=== PATIENT | male | born 1950 | race Caucasian/White ===

== ENCOUNTER → 2018-02-24 06:18 | Outpatient (CLI) | payer MEDICARE, OTHER, SELFPAY ==
--- NOTE | 2018-02-24 08:49 | STRESSREP ---
Stress Test Report Exercise myocardial perfusion stress test. 67-year-old man with a history of chest pain. Stress protocol: Resting EKG demonstrates normal sinus rhythm with a rate of 82 bpm normal intervals and noted resting blood pressure is 138/84 mmHg. The patient exercised according to regular Mikey protocol for 7 minutes and 37 seconds. The maximum heart rate attained was 137 bpm which was 89% of maximum predicted heart rate the maximum workload was 9.4 metabolic equivalents. At rest there were no ST or T-wave changes noted suggest ischemia at peak exercise upsloping ST changes only were noted would not be the criteria for ischemia. No clinical angina was noted the test was terminated due to shortness of breath. The resting blood pressure is 138/84 with a peak blood pressure 170/80 mmHg. Myocardial perfusion protocol. 10.8 mCi of technetium 99m sestamibi was injected at rest. The patient exercised for 7 minutes 37 seconds attaining 89% of maximum predicted heart rate at peak exercise 32.9 mCi of technetium 99m sestamibi was injected stress images were obtained stress and rest images were reconstructed and compared in the short axis vertical long and horizontal long axis. Gated images were also obtained pre- Perfusion SPECT analysis: Review of the stress images demonstrate normal uptake of tracer noted in all areas of the myocardium. The resting images similarly demonstrate normal uptake of tracer noted in all areas myocardium no areas of reversibility are noted suggest ischemia. No previous infarct is noted. Gated SPECT analysis: The gated ejection fraction is noted to be 75%. Conclusion: Normal exercise myocardial perfusion stress test at a high workload. Normal ejection fraction noted. Normal exercise capacity present.
== END ==
PROVIDERS: Family Provider Internal Medicine; PCP Internal Medicine; Visit Provider Internal Medicine Cardiovascular Disease
DX: R06.09 Other forms of dyspnea (principal); I10 Essential (primary) hypertension
CPT/HCPCS: 78452; 93017; A9500; A4216

== ENCOUNTER 2018-05-29 10:31 | Inpatient (IN) | payer MEDICARE, OTHER, SELFPAY ==
[2018-05-29] VITALS (17 sets, daily range): BP systolic 109–141; BP diastolic 62–90; PULSE 61–76; RESP 13–18; TEMP 36.4–36.9; O2SAT 94–100; BMI 23.8; BMI 24.5
--- NOTE | 2018-05-29 10:36 | CT_ITS ---
STUDY: CT BRAIN WITHOUT CONTRAST REASON FOR EXAM: Male, 67 years old. Diplopia and coordination problems. RADIATION DOSAGE (If Supplied By Facility): CTDIvol = ( 44.99 ) mGy, DLP = ( 779.24 ) mGycm TECHNIQUE: Transaxial CT imaging of the brain was performed without administration of intravenous contrast material. Multiplanar reformations are submitted for interpretation. Individualized dose optimization techniques were used for this CT. COMPARISON: None. FINDINGS: Normal soft tissue structures. Normal calvarium. There is mild cerebral atrophy with widening of the extra-axial spaces and ventricular dilatation. There are areas of decreased attenuation within the white matter tracts of the supratentorial brain, consistent with microvascular disease changes. There are small calcifications of the basal ganglia which are seen in the aging brain as a normal variant. Normal brainstem. Normal cerebellum. There is no intracranial hemorrhage. There is mild atherosclerotic calcification of the intracranial arteries. Normal visualized paranasal sinuses. CT/Brain/Head without Contrast IMPRESSION: 1. Chronic involutional changes of the brain. 2. No CT evidence of acute intracranial hemorrhage. N.B. : The above information has been verbally conveyed by Fariha Dobbs MD to Cornelio Melvin, Referring Physician, on 05/29/2018 11:20:45 (ET). Electronically Signed: Fariha Dobbs MD at 11:23 EDT , Service support ,
--- NOTE | 2018-05-29 10:37 | CT_ITS ---
STUDY: CTA OF THE BRAIN REASON FOR EXAM: Male, 67 years old. Balance and incoordination problems. Patient has had a cerebellar stroke. RADIATION DOSAGE (If Supplied By Facility): CTDIvol = ( 15.35 ) mGy, DLP = ( 462.44 ) mGycm TECHNIQUE: CT angiography was performed with a multi-detector CT scanner. Data acquisition was obtained from the skull base through the vertex following intravenous administration of 100 ml of Isovue 370. MIP images were reconstructed from the axial data set. Post-processing of the angiographic images was performed, with multiplanar reformation and 3D reconstruction. Individualized dose optimization techniques were used for this CT. COMPARISON: None. FINDINGS: Normal bilateral petrous carotid arteries. There is elongation and tortuosity of the right cavernous carotid artery without a demonstrated hemodynamically significant stenosis. There is elongation and tortuosity of the left cavernous carotid artery without a demonstrated hemodynamically significant stenosis. Normal right A1 segments of the anterior cerebral artery. Normal left A1 segments of the anterior cerebral artery. Normal intact anterior communicating artery (ACOM). Normal bilateral A2 segments of the anterior cerebral arteries. Normal right M1 and M2 segments of the middle cerebral arteries, with a normal M1 bifurcation. Normal left M1 and M2 segments of the middle cerebral arteries, with a normal M1 bifurcation. There is a persistent origin of the right posterior cerebral artery with absence of the posterior communicating artery (PCOM). Normal left posterior communicating artery (PCOM). There is a small atretic left vertebral artery with a dominant right vertebral artery. Normal basilar artery with a normal basilar bifurcation. The visualized bilateral superior cerebellar (SCA) arteries are normal. There is absence of the right P1 segment of the posterior cerebral arteries with a normal left P1 segment. Normal visualized bilateral P2 and P3 segments of the posterior cerebral arteries. There is no demonstrated aneurysm of the [place]. There is no demonstrated abnormality of the visualized brain. CT/CTA Head W/WO Contrast IMPRESSION: No CT evidence for hemodynamically significant stenosis, thrombosis or aneurysm. Electronically Signed: Fariha Dobbs MD at 11:37 EDT , Service support ,
--- NOTE | 2018-05-29 10:37 | CT_ITS ---
STUDY: CTA NECK WITH CONTRAST REASON FOR EXAM: Male, 67 years old. Balance and coordination issues, CVA symptoms RADIATION DOSAGE (If Supplied By Facility): CTDIvol = ( ) mGy, DLP = ( ) mGycm TECHNIQUE: CT angiography with multi-detector data acquisition was performed from the aortic arch to the skull base following intravenous administration of 100 ml of Isovue-370 contrast. MIP images were reconstructed from the axial data set. Post-processing of the angiographic images was performed, with multiplanar reformation and 3D reconstruction. Individualized dose optimization techniques were used for this CT. COMPARISON: CT soft tissues of the neck with IV contrast November 09, 2017. FINDINGS: The right lobe of the thyroid gland is notably decreased in size or poorly perfused compared to prior study. Multilevel degenerative changes of the cervical spine are again noted. Soft tissue swelling previously seen anterior to the left sternoclavicular joint has resolved. There is a stable generator in the soft tissues of the right anterior chest wall, its lead extending to the right sublingual tissues. AORTIC ARCH: There is atherosclerotic calcific plaque formation of the aortic arch and great vessels arising from the aortic arch, without a hemodynamically significant stenosis. There is a bovine origin of the great vessels with a common origin of the brachiocephalic and left common carotid artery. Normal origin of the left subclavian artery. There is calcific plaquing without stenosis at the origin of the right subclavian artery. RIGHT CAROTID ARTERIES: Normal right common carotid artery (CCA). There is mild atherosclerotic plaque formation with minimal narrowing of the right carotid bulb. Normal origin of the right internal carotid (ICA) artery without a hemodynamically significant stenosis. Normal visualized cervical portion of the right internal carotid artery. Normal origin of the right external carotid artery (ECA). LEFT CAROTID ARTERIES: Normal left common carotid artery (CCA). There is mild atherosclerotic plaque formation with minimal narrowing of the left carotid bulb. Normal origin of the left internal carotid (ICA) artery without a hemodynamically significant stenosis. Normal visualized cervical portion of the left internal carotid artery. Normal origin of the left external carotid artery (ECA). VERTEBRAL ARTERIES: Mild atherosclerotic narrowing at the ostium of the right vertebral artery. There is a severe ostial stenosis of left vertebral artery, which is a very small, 1-[address]/CTA Neck W/WO Contrast IMPRESSION: 1. Mild bilateral atherosclerotic calcification of the carotid bulbs without stenosis. The internal carotid arteries are widely patent. 2. Severe atherosclerotic stenosis of the small caliber, 1-2 mm left vertebral artery. 3. Moderate diffuse right narrowing at the ostium of the otherwise patent, normal caliber right vertebral artery. 4. Notable decreased size and/or decreased contrast enhancement of right thyroid gland. 5. Right sublingual stimulator with generator again noted. Electronically Signed: Parish Singh MD at 12:04 EDT , Service support ,
[2018-05-29 10:41] LABS: Bedside Glucose 101 mg/dL (70-110)
--- NOTE | 2018-05-29 10:45 | NURSING ---
DR SHEN PAGED
--- NOTE | 2018-05-29 10:47 | ED.VISSUMM ---
- ER Visit Summary Date of Service: 05/29/18 Chief Complaint: Awoke with vertigo History of Present Illness: The patient is a 67 M who presents with problems with balance. He denies headache. He denied any blurred vision loss of vision. His symptoms are not positional. He denies trouble with speech or swallowing. He denies chest pain, tightness, orthopnea or PND. He denies shortness of breath, dyspnea on exertion or cough. He does report nausea without vomiting diarrhea. He denies any urologic symptoms. There is no history of trauma. He is on no anticoagulant. He has no prior history of TIA or CVA. Patient awoke with symptoms. Onset is unknown. Physical Examination: Vital signs are markedly abnormal but not significant. Head is atraumatic normocephalic. Pupils are equal round reactive. Extraocular muscles are intact. There is nystagmus noted, horizontal fast component to the right. TMs are pearly white with landmarks noted. Nares patent with no drainage. Posterior pharynx without erythema or exudate. Uvula is midline. There is no dysphonia or dysphasia. Trachea is midline. There is no stridor with auscultation of the neck. Heart is regular without murmur, gallop or rub. S1 and S2 are normal. Lungs are clear to auscultation with good movement of air bilaterally. Abdomen soft nontender. NIH is 1. He is alert and oriented ?3. Motor spiral 5. Sensations intact. DTRs are symmetric with no clonus or Babinski. Cranial 2 through 12 are intact. Pain nose to finger and heel to awrren is abnormal predominantly on the right. He does report diplopia. There is no visual field cut, however. Test Results: EKG reveals a sinus rhythm rate of 67 with normal [place] interval, QRS duration and QT interval. [place] is normal. CT of the head interpreted by radiologist reveals no acute ischemic event. CTA of the head and neck are pending. Dr. Mitchell requested MRI however patient is not a candidate since he has a implanted stimulator for obstructive sleep apnea. CBC is unremarkable hematocrit is slightly low at 39.2. Creatinine is elevated 1.53. Coags normal. Emergency Department Course and Treatment: Stroke order set was initiated. Spoke with Dr. Mitchell. He requested MRI of CT of the head and CTA of the head and neck were negative. Contacted the vtc technician. She states she would prefer to do MRI today versus tomorrow since she would not be called in. Patient has no contraindication to MRI. If there is an abnormally on the CAT scan or he is a candidate for retrieval will not order MRI and make appropriate disposition. Patient failed dysphagia screening test Treatment Plan: Hospitalist was paged for admission Disposition: PCU Impression: Acute posterior circulatory stroke This note was generated with [employer] dictation software. It may contain incorrect words, spelling, and punctuation that were not noted in review of the chart prior to signing ED Disposition - Plan for ED Patient: Chief Complaint: Neuro S/Sx Referrals: Margy Patel MD [Primary Care Provider] -
[2018-05-29 10:50] LABS: Absolute Lymphocyte Count 1.22 X10^3/ul (0.83-4.51); Absolute Neutrophil Count 4.5 X10^3/uL (2.0-7.7); Basophil# 0.04 X10^3/uL; Basophil% 0.6 % (0-1); Eosinophil# 0.28 X10^3/uL; Eosinophils% 4.2 % (0-5); Hematocrit 39.2 % (40-54); Lymphocyte # 1.22 X10^3/ul (4.0); Lymphocyte % 18.2 % (19-41); Mean Corp Hgb Conc 33.2 g/gl (32-36); Mean Corpuscular Volume 96.6 fL (80-94); Mean Platelet Vol. 8.5 fl (6.2-12.0); Monocyte# 0.68 X10^3/uL; Monocyte% 10.1 % (0-10); Neutrophil # 4.46 X10^3/uL (2.7-7.7); Neutrophil % 66.6 % (47-70); POSITIVE COUNT NO; POSITIVE DIFFERENTIAL NO; POSITIVE MORPHOLOGY NO; Platelet Count 285 K/mm3 (150-450); RBC Distribution Width CV 13.4 % (11.6-14.6); RBC Distribution Width SD 46.6 fl (35.1-43.9); Red Blood Count 4.06 M/mm3 (4.6-6.2); White Blood Count 6.7 K/mm3 (4.4-11.0)
--- NOTE | 2018-05-29 10:53 | ED.DCSUM_ITS ---
- ER Visit Summary Date of Service: 05/29/18 Chief Complaint: Awoke with vertigo History of Present Illness: The patient is a 67 M who presents with problems with balance. He denies headache. He denied any blurred vision loss of vision. His symptoms are not positional. He denies trouble with speech or swallowing. He denies chest pain, tightness, orthopnea or PND. He denies shortness of breath, dyspnea on exertion or cough. He does report nausea without vomiting diarrhea. He denies any urologic symptoms. There is no history of trauma. He is on no anticoagulant. He has no prior history of TIA or CVA. Patient awoke with symptoms. Onset is unknown. Physical Examination: Vital signs are markedly abnormal but not significant. Head is atraumatic normocephalic. Pupils are equal round reactive. Extraocular muscles are intact. There is nystagmus noted, horizontal fast component to the right. TMs are pearly white with landmarks noted. Nares patent with no drainage. Posterior pharynx without erythema or exudate. Uvula is midline. There is no dysphonia or dysphasia. Trachea is midline. There is no stridor with auscultation of the neck. Heart is regular without murmur, gallop or rub. S1 and S2 are normal. Lungs are clear to auscultation with good movement of air bilaterally. Abdomen soft nontender. NIH is 1. He is alert and oriented ?3. Motor spiral 5. Sensations intact. DTRs are symmetric with no clonus or Babinski. Cranial 2 through 12 are intact. Pain nose to finger and heel to [place] is abnormal predominantly on the right. He does report diplopia. There is no visual field cut, however. Test Results: EKG reveals a sinus rhythm rate of 67 with normal [place] interval, QRS duration and QT interval. [place] is normal. CT of the head interpreted by radiologist reveals no acute ischemic event. CTA of the head and neck are pending. Dr. Mitchell requested MRI however patient is not a candidate since he has a implanted stimulator for obstructive sleep apnea. CBC is unremarkable hematocrit is slightly low at 39.2. Creatinine is elevated 1.53. Coags normal. Emergency Department Course and Treatment: Stroke order set was initiated. Spoke with Dr. Mitchell. He requested MRI of CT of the head and CTA of the head and neck were negative. Contacted the bioprocessing manufacturing technician. She states she would prefer to do MRI today versus tomorrow since she would not be called in. Patient has no contraindication to MRI. If there is an abnormally on the CAT scan or he is a candidate for retrieval will not order MRI and make appropriate disposition. Patient failed dysphagia screening test Treatment Plan: Hospitalist was paged for admission Disposition: PCU Impression: Acute posterior circulatory stroke This note was generated with [employer] dictation software. It may contain incorrect words, spelling, and punctuation that were not noted in review of the chart prior to signing ED Disposition - Plan for ED Patient: Chief Complaint: Neuro S/Sx Referrals: Margy Patel MD [Primary Care Provider] -
[2018-05-29 10:57] LABS: Partial Thromboplast Time 29.1 Seconds (24.1-36.2); Prothrombin Time (Protime)PT. 13.1 SECONDS (11.7-14.9)
[2018-05-29 11:02] LABS: Anion Gap 10 (5-15); BUN 16 mg/dL (7-18); BUN/Creat Ratio 10.5 RATIO (10-20); Calcium,Total 8.8 mg/dL (8.5-10.1); Chloride 106 mmol/L (98-107); Creatinine, Serum 1.53 mg/dL (0.70-1.30); EST Glomerular Filtration Rate 48 mL/min (>60); Est Glom Filt Rate - Afr Amer 59 mL/min (>60); Estimated Creatinine Clearance 46.85 ml/min; Glucose 103 mg/dL (74-106); Potassium 4.4 mmol/L (3.5-5.1); Sodium Level 144 mmol/L (136-145)
--- NOTE | 2018-05-29 12:07 | ED.RN ---
PAGED HOSPITALIST FOR SECOND TIME [phone]
--- NOTE | 2018-05-29 12:53 | NURSING ---
DR BROWN FOR DR RODARTE
--- NOTE | 2018-05-29 12:53 | NURSING ---
PCU PROBABLE ACUTE POSTERIOR CIRCULAGTION STROKE SALOME
--- NOTE | 2018-05-29 13:04 | PCM.HP.STD ---
Problem List (1) Hypothyroidism Status: Chronic (2) Severe depression Status: Chronic (3) Obstructive sleep apnea Status: Chronic (4) Hypothyroidism Status: Chronic Qualifiers: (5) Suicide attempt by beta helena overdose Status: Chronic Qualifiers: History of Present Illness Date of Admission: 05/29/18 Chief Complaint: Dizziness. The patient is a 67 year old M with past medical history as mentioned above presented to the emergency department because of problems with balance. The patient mentioned that he woke up this morning with dizziness, could not precisely described as dizziness but sometimes similar to vertigo with spinning, associated with generalized weakness and he could not climb the stairs at home and without aggravating or relieving factors. It is not positional and moving his head does not aggravate his dizziness. He denied blurred vision, slurred speech, numbness or tingling. He denied headache, ear pain or discharge. He denied focal arm or leg weakness. He had a history of severe depression and suicide attempt by overdosing on beta-blockers and he has been on venlafaxine and lamotrigine. He had a history of hypothyroidism and he has been on levothyroxine, TSH was normal on October,. He has a history of benign prostatic hypertrophy and he has been on pressors seen and has been stable. He has history of obstructive sleep apnea status post implanted stimulator. In the emergency department, patient has no focal deficit. His vital signs are stable. His routine blood work was remarkable for creatinine 1.53, otherwise normal. His EKG revealed normal sinus rhythm, normal GA interval, normal QRS, normal QTC and no evidence of cardiac arrhythmias. CT scan brain showed no acute infarction or hemorrhage. CTA of the head revealed no hemodynamically significant stenosis, thrombosis or aneurysm. CTA of the neck revealed mild bilateral arteriosclerotic calcification of the carotid bulbs without stenosis, severe stenosis of the small-caliber vertebral artery. Patient is being admitted for dizziness/vertigo, imbalance with concern for probable posterior circulation stroke. Past Medical History Past Medical History (Chronic Problems): Chronic Problems Hypothyroidism (Chronic) Severe depression (Chronic) Obstructive sleep apnea (Chronic) Hypothyroidism (Chronic) Suicide attempt by beta helena overdose (Chronic) Allergies No Known Allergies Allergy (Verified 05/29/18 10:32) Home Medications: Ambulatory Orders Medication Instructions Recorded Lamotrigine [Lamotrigine] 100 mg PO DAILY 11/08/17 Prazosin HCl [Prazosin HCl] 1 mg PO DAILY 11/08/17 Propranolol HCl [Inderal (Beta 10 mg PO BID 11/08/17 [place])] Simvastatin [Zocor] 20 mg PO DAILY 11/08/17 Venlafaxine HCl [Venlafaxine HCl 150 mg PO DAILY 11/08/17 ER] Levothyroxine [Synthroid] 50 mcg PO DAILY 11/10/17 Venlafaxine HCl [Effexor Xr] 75 mg PO DAILY 05/29/18 Surgical History: - - Implanted stimulator for obstructive sleep apnea. Psychiatric History: Depression Lives: Spouse/ Significant Other Smoking Status: Never smoker Alcohol: None Drugs: None - *Family History Maternal History Items: - - Maternal and paternal family history of hypertension, heart disease, depression. Paternal History Items: - - Maternal and paternal family history of hypertension, heart disease, depression. Review of Systems Constitutional: Reports: Weakness. Denies: Anorexia, Chills, Fever Eyes: Denies: Blurred vision, Double vision, Drainage, Redness HEENT: Denies: Difficulty Hearing, Ear Pain, Eye Pain, Nasal Congestion, Sore Throat Cardiovascular: Denies: Chest Pain, Chest Pressure, Chest Tightness, Heaviness, Light Headedness, Palpitations, Syncope Respiratory: Denies: Cough, Pleuritic Pain, Shortness of Breath, Sputum production, Wheezing Gastrointestinal: Denies: Abdominal Pain, Constipation, Diarrhea, Nausea, Vomiting Genitourinary: Denies: Dysuria, Frequency, Hematuria Musculoskeletal: Denies: Arm Pain, Back Pain, Foot Pain Skin: Denies: Dryness, Rash Neurological: Reports: Balance problems, Double vision. Denies: Slurred speech, Confusion, Focal weakness, Headaches, Numbness, Tingling Psychiatric: Reports: Depression. Denies: Anxiety Endocrine: Denies: Change in Body Habitus, Polydipsia VTE Information - Inpt Only VTE Present on Admission: No VTE Mechan Device Prophylaxis: None VTE Pharm Prophylaxis ordered?: Yes - Physical Exam General: Alert, Oriented x3, Cooperative, No apparent distress HEENT: Atraumatic, PERRLA, EOMI, Normocephalic Oral: Moist Mucosa, No Gingival or Mucosal Lesions/ Ulcerations Neck: Supple, No JVD, Negative Carotid Bruits, Trachea Midline, Thyroid Normal Size and Texture Lungs: Clear to auscultation, No rhonchi, No wheeze, No rales, Diminished Cardiovascular: Regular rate, Regular Rhythm, Normal S1, Normal S2, No murmurs, PMI Normal Abdomen: Bowel Sounds Present, Soft, Non Tender, Non-Distended, No Hepato-splenomegaly Extremities: No clubbing, No cyanosis, No edema Skin: No rashes, No breakdown Lymphatic: No Cervical, Supraclavicular, or Inguinal Adenopathy Neurological: Cranial nerves II-XII grossly intact, Motor Exam 5/5 strength throughout Psych/Mental Status: Anxious, - - Tremors., Alert and oriented to time, place, person, mood and affect Vital Signs Temp Pulse Resp BP Pulse Ox 97.5 F L 61 18 136/75 H 99 05/29/18 10:33 05/29/18 12:45 05/29/18 12:45 05/29/18 12:45 05/29/18 12:45 Oxygen Delivery Method Room Air Weight: 161 lb 13.109 oz Body Mass Index (BMI) 23.8 Finger Stick Blood Glucose 101 Laboratory Tests Past 24 Hrs 05/29/18 05/29/18 05/29/18 10:45 10:45 10:45 WBC 6.7 RBC 4.06 L Hgb 13.0 Hct 39.2 L MCV 96.6 H MCH 32.0 MCHC 33.2 RDW 13.4 RDW Differential 46.6 H Plt Count 285 MPV 8.5 Immature Gran % (Auto) 0.300 Neut % (Auto) 66.6 Lymph % (Auto) 18.2 L [place] % (Auto) 10.1 H Eos % (Auto) 4.2 Baso % (Auto) 0.6 Absolute Neuts (auto) 4.5 Absolute Lymphs (auto) 1.22 Total Counted Not Reportable PT 13.1 INR 1.0 APTT 29.1 Sodium 144 Potassium 4.4 Chloride 106 Carbon Dioxide 28.0 Anion Gap 10 BUN 16 Creatinine 1.53 H Estim Creat Clear Calc 46.85 Est GFR (MDRD) Af Amer 59 L Est GFR (MDRD) Non-Af 48 L BUN/Creatinine Ratio 10.5 Glucose 103 Calcium 8.8 POC Glucose 05/29/18 10:36 POC Glucose 101 Clinical Impression(s) from Imaging Studies Brain CT 05/29/18 10:36 IMPRESSION: 1. Chronic involutional changes of the brain. 2. No CT evidence of acute intracranial hemorrhage. N.B. : The above information has been verbally conveyed by Fariha Dobbs MD to Cornelio Melvin, Referring Physician, on 05/29/2018 11:20:45 (ET). Electronically Signed: Fariha Dobbs MD at 11:23 EDT , Service support , Head CTA 05/29/18 10:37 IMPRESSION: No CT evidence for hemodynamically significant stenosis, thrombosis or aneurysm. Electronically Signed: Fariha Dobbs MD at 11:37 EDT , Service support , Neck CTA 05/29/18 10:37 IMPRESSION: 1. Mild bilateral atherosclerotic calcification of the carotid bulbs without stenosis. The internal carotid arteries are widely patent. 2. Severe atherosclerotic stenosis of the small caliber, 1-2 mm left vertebral artery. 3. Moderate diffuse right narrowing at the ostium of the otherwise patent, normal caliber right vertebral artery. 4. Notable decreased size and/or decreased contrast enhancement of right thyroid gland. 5. Right sublingual stimulator with generator again noted. Electronically Signed: Parish Singh MD at 12:04 EDT , Service support , Assessment/Plan This is a 67 years old male patient presented to the medicine because of symptoms of dizziness, questionable vertigo, imbalance and he is being admitted for evaluation for probable acute posterior circulation stroke and also found to have acute kidney injury. #1 dizziness/probable vertigo/imbalance/concern for posterior circulation stroke: CT scan brain showed no acute infarction or hemorrhage. CTA of the head and neck reviewed as above. CTA of the neck revealed severe atherosclerotic stenosis of the vertebral artery. ER physician discussed this finding with Dr. Mitchell who stated that patient can be admitted to our hospital and probably he would not need any vascular surgery evaluation. EKG revealed normal sinus rhythm without evidence of cardiac arrhythmias. Blood pressure stable. He has no significant focal deficit on physical examination. Patient failed dysphagia screen in the ER. Plan: Admit to PCU, cardiac monitoring, troponin ?1, NIH stroke scale, fasting lipid profile, start aspirin and Lipitor, 2D echocardiogram, neurology consult, repeat CBC and BMP tomorrow morning, PT OT evaluation and treatment, speech therapy evaluation and treatment. #2 acute kidney injury: Likely because of dehydration. Baseline creatinine is normal. Admission creatinine 1.53. Plan for IV fluids, input output chart, repeat BMP tomorrow morning. #3 hypothyroidism: Continue levothyroxine, TSH was normal in October,. #4 hyperlipidemia: Start full dose of Lipitor, fasting lipid profile. #5 benign prostatic hypertrophy: Continue prazosin. #6 severe depression/history of suicide attempt: Continue venlafaxine and lamotrigine. #7 obstructive sleep apnea: Status post implanted stimulator. #8 DVT prophylaxis: Subcu heparin. This note was generated with [employer] dictation software. It may contain incorrect words, spelling, and punctuation that were not noted in checking the note before signing. Code Visit Inpatient E&M: 43104 Init Hosp L3
--- NOTE | 2018-05-29 13:10 | HP.PCM_ITS ---
Problem List (1) Hypothyroidism Status: Chronic (2) Severe depression Status: Chronic (3) Obstructive sleep apnea Status: Chronic (4) Hypothyroidism Status: Chronic Qualifiers: (5) Suicide attempt by beta helena overdose Status: Chronic Qualifiers: History of Present Illness Date of Admission: 05/29/18 Chief Complaint: Dizziness. The patient is a 67 year old M with past medical history as mentioned above presented to the emergency department because of problems with balance. The patient mentioned that he woke up this morning with dizziness, could not precisely described as dizziness but sometimes similar to vertigo with spinning , associated with generalized weakness and he could not climb the stairs at home and without aggravating or relieving factors. It is not positional and moving his head does not aggravate his dizziness. He denied blurred vision, slurred speech, numbness or tingling. He denied headache, ear pain or discharge. He denied focal arm or leg weakness. He had a history of severe depression and suicide attempt by overdosing on beta-blockers and he has been on venlafaxine and lamotrigine. He had a history of hypothyroidism and he has been on levothyroxine, TSH was normal on October,. He has a history of benign prostatic hypertrophy and he has been on pressors seen and has been stable. He has history of obstructive sleep apnea status post implanted stimulator. In the emergency department, patient has no focal deficit. His vital signs are stable. His routine blood work was remarkable for creatinine 1.53, otherwise normal. His EKG revealed normal sinus rhythm, normal MA interval, normal QRS, normal QTC and no evidence of cardiac arrhythmias. CT scan brain showed no acute infarction or hemorrhage. CTA of the head revealed no hemodynamically significant stenosis, thrombosis or aneurysm. CTA of the neck revealed mild bilateral arteriosclerotic calcification of the carotid bulbs without stenosis, severe stenosis of the small-caliber vertebral artery. Patient is being admitted for dizziness/vertigo, imbalance with concern for probable posterior circulation stroke. Past Medical History Past Medical History (Chronic Problems): Chronic Problems Hypothyroidism (Chronic) Severe depression (Chronic) Obstructive sleep apnea (Chronic) Hypothyroidism (Chronic) Suicide attempt by beta helena overdose (Chronic) Allergies No Known Allergies Allergy (Verified 05/29/18 10:32) Home Medications: Ambulatory Orders Medication Instructions Recorded Lamotrigine [Lamotrigine] 100 mg PO DAILY 11/08/17 Prazosin HCl [Prazosin HCl] 1 mg PO DAILY 11/08/17 Propranolol HCl [Inderal (Beta 10 mg PO BID 11/08/17 [place])] Simvastatin [Zocor] 20 mg PO DAILY 11/08/17 Venlafaxine HCl [Venlafaxine HCl 150 mg PO DAILY 11/08/17 ER] Levothyroxine [Synthroid] 50 mcg PO DAILY 11/10/17 Venlafaxine HCl [Effexor Xr] 75 mg PO DAILY 05/29/18 Surgical History: - - Implanted stimulator for obstructive sleep apnea. Psychiatric History: Depression Lives: Spouse/ Significant Other Smoking Status: Never smoker Alcohol: None Drugs: None - *Family History Maternal History Items: - - Maternal and paternal family history of hypertension, heart disease, depression. Paternal History Items: - - Maternal and paternal family history of hypertension, heart disease, depression. Review of Systems Constitutional: Reports: Weakness. Denies: Anorexia, Chills, Fever Eyes: Denies: Blurred vision, Double vision, Drainage, Redness HEENT: Denies: Difficulty Hearing, Ear Pain, Eye Pain, Nasal Congestion, Sore Throat Cardiovascular: Denies: Chest Pain, Chest Pressure, Chest Tightness, Heaviness, Light Headedness, Palpitations, Syncope Respiratory: Denies: Cough, Pleuritic Pain, Shortness of Breath, Sputum production, Wheezing Gastrointestinal: Denies: Abdominal Pain, Constipation, Diarrhea, Nausea, Vomiting Genitourinary: Denies: Dysuria, Frequency, Hematuria Musculoskeletal: Denies: Arm Pain, Back Pain, Foot Pain Skin: Denies: Dryness, Rash Neurological: Reports: Balance problems, Double vision. Denies: Slurred speech , Confusion, Focal weakness, Headaches, Numbness, Tingling Psychiatric: Reports: Depression. Denies: Anxiety Endocrine: Denies: Change in Body Habitus, Polydipsia VTE Information - Inpt Only VTE Present on Admission: No VTE Mechan Device Prophylaxis: None VTE Pharm Prophylaxis ordered?: Yes - Physical Exam General: Alert, Oriented x3, Cooperative, No apparent distress HEENT: Atraumatic, PERRLA, EOMI, Normocephalic Oral: Moist Mucosa, No Gingival or Mucosal Lesions/ Ulcerations Neck: Supple, No JVD, Negative Carotid Bruits, Trachea Midline, Thyroid Normal Size and Texture Lungs: Clear to auscultation, No rhonchi, No wheeze, No rales, Diminished Cardiovascular: Regular rate, Regular Rhythm, Normal S1, Normal S2, No murmurs, PMI Normal Abdomen: Bowel Sounds Present, Soft, Non Tender, Non-Distended, No Hepato- splenomegaly Extremities: No clubbing, No cyanosis, No edema Skin: No rashes, No breakdown Lymphatic: No Cervical, Supraclavicular, or Inguinal Adenopathy Neurological: Cranial nerves II-XII grossly intact, Motor Exam 5/5 strength throughout Psych/Mental Status: Anxious, - - Tremors., Alert and oriented to time, place, person, mood and affect Vital Signs Temp Pulse Resp BP Pulse Ox 97.5 F L 61 18 136/75 H 99 05/29/18 10:33 05/29/18 12:45 05/29/18 12:45 05/29/18 12:45 05/29/18 12:45 Oxygen Delivery Method Room Air Weight: 161 lb 13.109 oz Body Mass Index (BMI) 23.8 Finger Stick Blood Glucose 101 Laboratory Tests Past 24 Hrs 05/29/18 05/29/18 05/29/18 10:45 10:45 10:45 WBC 6.7 RBC 4.06 L Hgb 13.0 Hct 39.2 L MCV 96.6 H MCH 32.0 MCHC 33.2 RDW 13.4 RDW Differential 46.6 H Plt Count 285 MPV 8.5 Immature Gran % (Auto) 0.300 Neut % (Auto) 66.6 Lymph % (Auto) 18.2 L [place] % (Auto) 10.1 H Eos % (Auto) 4.2 Baso % (Auto) 0.6 Absolute Neuts (auto) 4.5 Absolute Lymphs (auto) 1.22 Total Counted Not Reportable PT 13.1 INR 1.0 APTT 29.1 Sodium 144 Potassium 4.4 Chloride 106 Carbon Dioxide 28.0 Anion Gap 10 BUN 16 Creatinine 1.53 H Estim Creat Clear Calc 46.85 Est GFR (MDRD) Af Amer 59 L Est GFR (MDRD) Non-Af 48 L BUN/Creatinine Ratio 10.5 Glucose 103 Calcium 8.8 POC Glucose 05/29/18 10:36 POC Glucose 101 Clinical Impression(s) from Imaging Studies Brain CT 05/29/18 10:36 IMPRESSION: 1. Chronic involutional changes of the brain. 2. No CT evidence of acute intracranial hemorrhage. N.B. : The above information has been verbally conveyed by Fariha Dobbs MD to Cornelio Melvin, Referring Physician, on 05/29/2018 11:20:45 (ET). Electronically Signed: Fariha Dobbs MD at 11:23 EDT , Service support , Head CTA 05/29/18 10:37 IMPRESSION: No CT evidence for hemodynamically significant stenosis, thrombosis or aneurysm. Electronically Signed: Fariha Dobbs MD at 11:37 EDT , Service support , Neck CTA 05/29/18 10:37 IMPRESSION: 1. Mild bilateral atherosclerotic calcification of the carotid bulbs without stenosis. The internal carotid arteries are widely patent. 2. Severe atherosclerotic stenosis of the small caliber, 1-2 mm left vertebral artery. 3. Moderate diffuse right narrowing at the ostium of the otherwise patent, normal caliber right vertebral artery. 4. Notable decreased size and/or decreased contrast enhancement of right thyroid gland. 5. Right sublingual stimulator with generator again noted. Electronically Signed: Parish Singh MD at 12:04 EDT , Service support , Assessment/Plan This is a 67 years old male patient presented to the medicine because of symptoms of dizziness, questionable vertigo, imbalance and he is being admitted for evaluation for probable acute posterior circulation stroke and also found to have acute kidney injury. #1 dizziness/probable vertigo/imbalance/concern for posterior circulation stroke : CT scan brain showed no acute infarction or hemorrhage. CTA of the head and neck reviewed as above. CTA of the neck revealed severe atherosclerotic stenosis of the vertebral artery. ER physician discussed this finding with Dr. Mitchell who stated that patient can be admitted to our hospital and probably he would not need any vascular surgery evaluation. EKG revealed normal sinus rhythm without evidence of cardiac arrhythmias. Blood pressure stable. He has no significant focal deficit on physical examination. Patient failed dysphagia screen in the ER. Plan: Admit to PCU, cardiac monitoring, troponin ?1, NIH stroke scale, fasting lipid profile, start aspirin and Lipitor, 2D echocardiogram, neurology consult, repeat CBC and BMP tomorrow morning, PT OT evaluation and treatment, speech therapy evaluation and treatment. #2 acute kidney injury: Likely because of dehydration. Baseline creatinine is normal. Admission creatinine 1.53. Plan for IV fluids, input output chart, repeat BMP tomorrow morning. #3 hypothyroidism: Continue levothyroxine, TSH was normal in October,. #4 hyperlipidemia: Start full dose of Lipitor, fasting lipid profile. #5 benign prostatic hypertrophy: Continue prazosin. #6 severe depression/history of suicide attempt: Continue venlafaxine and lamotrigine. #7 obstructive sleep apnea: Status post implanted stimulator. #8 DVT prophylaxis: Subcu heparin. This note was generated with [employer] dictation software. It may contain incorrect words, spelling, and punctuation that were not noted in checking the note before signing. Code Visit Inpatient E&M: 30740 Init Hosp L3
[2018-05-29] MEDS: 0.9% Normal Saline 1,000 ML 100 ML IV ×2 (14:30→21:55)
[2018-05-29] MEDS: Heparin Injection (Vial) 5,000 UNIT/ML VIAL 5000 UNIT SC ×2 (16:12→21:47)
[2018-05-30] VITALS (8 sets, daily range): BP systolic 106–136; BP diastolic 54–82; PULSE 60–83; RESP 18; TEMP 36.3–37.1; O2SAT 94–98; BMI 24.5
[2018-05-30] MEDS: Heparin Injection (Vial) 5,000 UNIT/ML VIAL 5000 UNIT SC (06:19)
[2018-05-30 06:29] LABS: Absolute Neutrophil Count 2.3 X10^3/uL (2.0-7.7); Basophil# 0.04 X10^3/uL; Basophil% 0.9 % (0-1); Eosinophils% 6.6 % (0-5); Hematocrit 32.9 % (40-54); Hemoglobin 11.1 g/dl (13.0-16.5); Lymphocyte % 28.8 % (19-41); Mean Corp Hgb Conc 33.7 g/gl (32-36); Mean Corpuscular Hgb 32.9 pg (27.0-32.0); Mean Corpuscular Volume 97.6 fL (80-94); Mean Platelet Vol. 8.4 fl (6.2-12.0); Monocyte# 0.57 X10^3/uL; Monocyte% 12.6 % (0-10); Neutrophil % 50.9 % (47-70); Platelet Count 231 K/mm3 (150-450); RBC Distribution Width CV 13.2 % (11.6-14.6); RBC Distribution Width SD 46.1 fl (35.1-43.9); Red Blood Count 3.37 M/mm3 (4.6-6.2); White Blood Count 4.5 K/mm3 (4.4-11.0)
[2018-05-30 06:31] LABS: POSITIVE COUNT NO; POSITIVE DIFFERENTIAL NO; POSITIVE MORPHOLOGY NO
[2018-05-30 06:52] LABS: Anion Gap 10 (5-15); BUN 12 mg/dL (7-18); BUN/Creat Ratio 9.3 RATIO (10-20); Chloride 111 mmol/L (98-107); Cholesterol 125 mg/dL (200); Creatinine, Serum 1.29 mg/dL (0.70-1.30); EST Glomerular Filtration Rate 59 mL/min (>60); Est Glom Filt Rate - Afr Amer 71 mL/min (>60); Estimated Creatinine Clearance 55.57 ml/min; Glucose 80 mg/dL (74-106); High Density Lipoprotein 44 mg/dL; Potassium 4.3 mmol/L (3.5-5.1); Sodium Level 145 mmol/L (136-145); Triglycerides 89 mg/dL; Very Low Density Lipoprotein 18 mg/dL (5-40)
--- NOTE | 2018-05-30 08:02 | PCM.PROGNOTE ---
Subjective: Chief complaint: Follow-up after admission for probable posterior circulation acute stroke. Patient seen and examined. No acute events overnight. Today, he mentioned that his dizziness is better. Has been up to the bedside commode without any more dizziness or vertigo. Denied headache, vision change or slurred speech. Denied chest pain or shortness of breath. His vitals are stable - Physical Exam General: Alert, Oriented x3, Cooperative, No apparent distress HEENT: Atraumatic, PERRLA, EOMI, Normocephalic Oral: Moist Mucosa, No Gingival or Mucosal Lesions/ Ulcerations Neck: Supple, No JVD, Negative Carotid Bruits, Trachea Midline, Thyroid Normal Size and Texture Lungs: Clear to auscultation, No rhonchi, No wheeze, No rales, Diminished Cardiovascular: Regular rate, Regular Rhythm, Normal S1, Normal S2, PMI Normal Abdomen: Bowel Sounds Present, Soft, Non Tender, Non-Distended, No Hepato-splenomegaly Extremities: No clubbing, No cyanosis, No edema Skin: No rashes, No breakdown Lymphatic: No Cervical, Supraclavicular, or Inguinal Adenopathy Neurological: Cranial nerves II-XII grossly intact, Motor Exam 5/5 strength throughout, - - Nystagmus. Psych/Mental Status: Normal Affect, Appropriate, - Vital Signs Temp Pulse Resp BP Pulse Ox 98.4 F 63 18 110/54 L 98 05/30/18 04:50 05/30/18 07:21 05/30/18 04:50 05/30/18 04:50 05/30/18 04:50 Oxygen Delivery Method Room Air Weight: 166 lb 0.129 oz Body Mass Index (BMI) 24.5 Intake and Output for Last 24 Hours 05/28/18 05/29/18 05/30/18 23:59 23:59 23:59 Intake Total 330 / 330 1245 / 1245 Output Total 100 / 100 500 / 500 Balance 230 / 230 745 / 745 Laboratory Tests Past 24 Hrs 05/30/18 05/30/18 06:18 06:18 WBC 4.5 RBC 3.37 L Hgb 11.1 L Hct 32.9 L MCV 97.6 H MCH 32.9 H MCHC 33.7 RDW 13.2 RDW Differential 46.1 H Plt Count 231 MPV 8.4 Immature Gran % (Auto) 0.200 Neut % (Auto) 50.9 Lymph % (Auto) 28.8 [place] % (Auto) 12.6 H Eos % (Auto) 6.6 H Baso % (Auto) 0.9 Absolute Neuts (auto) 2.3 Absolute Lymphs (auto) 1.30 Total Counted Not Reportable Sodium 145 Potassium 4.3 Chloride 111 H Carbon Dioxide 24.0 Anion Gap 10 BUN 12 Creatinine 1.29 Estim Creat Clear Calc 55.57 Est GFR (MDRD) Af Amer 71 Est GFR (MDRD) Non-Af 59 L BUN/Creatinine Ratio 9.3 L Glucose 80 Calcium 8.0 L Triglycerides 89 Cholesterol 125 LDL Cholesterol 63 VLDL Cholesterol 18 HDL Cholesterol 44 Medical Necessity - Tobacco Use Smoking Status: Never smoker Assessment/Plan This is a 67 years old male patient presented to the medicine because of symptoms of dizziness, questionable vertigo, imbalance and he is being admitted for evaluation for probable acute posterior circulation stroke and also found to have acute kidney injury. #1 dizziness/probable vertigo/imbalance/concern for posterior circulation stroke: He is on aspirin and statins. Vital signs are stable, blood pressure under control. CT scan brain showed no acute infarction or hemorrhage. CTA of the head and neck reviewed as above. CTA of the neck revealed severe atherosclerotic stenosis of the vertebral artery. ER physician discussed this finding with Dr. Mitchell who stated that patient can be admitted to our hospital and probably he would not need any vascular surgery evaluation. He remained in sinus rhythm, heart rate stable. Fasting lipid profile reviewed today, normal. 2D echocardiogram ordered. MRI brain cannot be done because patient has an implanted stimulator for obstructive sleep apnea. Awaiting neurology recommendations. #2 acute kidney injury: Likely because of dehydration. Baseline creatinine is normal. Admission creatinine 1.53. He is on IV fluids, creatinine came down to 1.29, improved. #3 hypothyroidism: Continue levothyroxine, TSH was normal in October,. #4 hyperlipidemia: He is on Lipitor, lipid profile reviewed. #5 benign prostatic hypertrophy: Continue prazosin. #6 severe depression/history of suicide attempt: Continue venlafaxine and lamotrigine. #7 obstructive sleep apnea: Status post implanted stimulator. #8 DVT prophylaxis: Subcu heparin. This note was generated with [employer] dictation software. It may contain incorrect words, spelling, and punctuation that were not noted in checking the note before signing. Code Visit Inpatient E&M: 31163 Subs Hosp L2
--- NOTE | 2018-05-30 08:06 | PN_ITS ---
Subjective: Chief complaint: Follow-up after admission for probable posterior circulation acute stroke. Patient seen and examined. No acute events overnight. Today, he mentioned that his dizziness is better. Has been up to the bedside commode without any more dizziness or vertigo. Denied headache, vision change or slurred speech. Denied chest pain or shortness of breath. His vitals are stable - Physical Exam General: Alert, Oriented x3, Cooperative, No apparent distress HEENT: Atraumatic, PERRLA, EOMI, Normocephalic Oral: Moist Mucosa, No Gingival or Mucosal Lesions/ Ulcerations Neck: Supple, No JVD, Negative Carotid Bruits, Trachea Midline, Thyroid Normal Size and Texture Lungs: Clear to auscultation, No rhonchi, No wheeze, No rales, Diminished Cardiovascular: Regular rate, Regular Rhythm, Normal S1, Normal S2, PMI Normal Abdomen: Bowel Sounds Present, Soft, Non Tender, Non-Distended, No Hepato- splenomegaly Extremities: No clubbing, No cyanosis, No edema Skin: No rashes, No breakdown Lymphatic: No Cervical, Supraclavicular, or Inguinal Adenopathy Neurological: Cranial nerves II-XII grossly intact, Motor Exam 5/5 strength throughout, - - Nystagmus. Psych/Mental Status: Normal Affect, Appropriate, - Vital Signs Temp Pulse Resp BP Pulse Ox 98.4 F 63 18 110/54 L 98 05/30/18 04:50 05/30/18 07:21 05/30/18 04:50 05/30/18 04:50 05/30/18 04:50 Oxygen Delivery Method Room Air Weight: 166 lb 0.129 oz Body Mass Index (BMI) 24.5 Intake and Output for Last 24 Hours 05/28/18 05/29/18 05/30/18 23:59 23:59 23:59 Intake Total 330 / 330 1245 / 1245 Output Total 100 / 100 500 / 500 Balance 230 / 230 745 / 745 Laboratory Tests Past 24 Hrs 05/30/18 05/30/18 06:18 06:18 WBC 4.5 RBC 3.37 L Hgb 11.1 L Hct 32.9 L MCV 97.6 H MCH 32.9 H MCHC 33.7 RDW 13.2 RDW Differential 46.1 H Plt Count 231 MPV 8.4 Immature Gran % (Auto) 0.200 Neut % (Auto) 50.9 Lymph % (Auto) 28.8 [place] % (Auto) 12.6 H Eos % (Auto) 6.6 H Baso % (Auto) 0.9 Absolute Neuts (auto) 2.3 Absolute Lymphs (auto) 1.30 Total Counted Not Reportable Sodium 145 Potassium 4.3 Chloride 111 H Carbon Dioxide 24.0 Anion Gap 10 BUN 12 Creatinine 1.29 Estim Creat Clear Calc 55.57 Est GFR (MDRD) Af Amer 71 Est GFR (MDRD) Non-Af 59 L BUN/Creatinine Ratio 9.3 L Glucose 80 Calcium 8.0 L Triglycerides 89 Cholesterol 125 LDL Cholesterol 63 VLDL Cholesterol 18 HDL Cholesterol 44 Medical Necessity - Tobacco Use Smoking Status: Never smoker Assessment/Plan This is a 67 years old male patient presented to the medicine because of symptoms of dizziness, questionable vertigo, imbalance and he is being admitted for evaluation for probable acute posterior circulation stroke and also found to have acute kidney injury. #1 dizziness/probable vertigo/imbalance/concern for posterior circulation stroke : He is on aspirin and statins. Vital signs are stable, blood pressure under control. CT scan brain showed no acute infarction or hemorrhage. CTA of the head and neck reviewed as above. CTA of the neck revealed severe atherosclerotic stenosis of the vertebral artery. ER physician discussed this finding with Dr. Mitchell who stated that patient can be admitted to our hospital and probably he would not need any vascular surgery evaluation. He remained in sinus rhythm, heart rate stable. Fasting lipid profile reviewed today, normal. 2D echocardiogram ordered. MRI brain cannot be done because patient has an implanted stimulator for obstructive sleep apnea. Awaiting neurology recommendations. #2 acute kidney injury: Likely because of dehydration. Baseline creatinine is normal. Admission creatinine 1.53. He is on IV fluids, creatinine came down to 1.29, improved. #3 hypothyroidism: Continue levothyroxine, TSH was normal in October,. #4 hyperlipidemia: He is on Lipitor, lipid profile reviewed. #5 benign prostatic hypertrophy: Continue prazosin. #6 severe depression/history of suicide attempt: Continue venlafaxine and lamotrigine. #7 obstructive sleep apnea: Status post implanted stimulator. #8 DVT prophylaxis: Subcu heparin. This note was generated with [employer] (formerly [employer]) dictation software. It may contain incorrect words, spelling, and punctuation that were not noted in checking the note before signing. Code Visit Inpatient E&M: 82258 Subs Hosp L2
--- NOTE | 2018-05-30 11:48 | CON.PCM_ITS ---
Reason for Consult Date of Consultation: 05/30/18 Reason for Consultation: CVA History of Present Illness: The patient is a 67 year old M who awoke yesterday am feeling normal, after about an hour he felt increasingly imbalanced, and unsteady. no spining, feels normal now. has baseline familial tremor. denies vision changes, speech or swallowing abnormalities. evidently failed swallow eval but feels normal now and says he has had swallowing issues for years, for unclear reasons. reports type II bipolar. had suicidal urge and overdose in [facility]. apparently was hospitalized in [facility], had abnormal swallow eval in [facility]. Per admission H&P: The patient is a 67 year old M with past medical history as mentioned above presented to the emergency department because of problems with balance. The patient mentioned that he woke up this morning with dizziness, could not precisely described as dizziness but sometimes similar to vertigo with spinning, associated with generalized weakness and he could not climb the stairs at home and without aggravating or relieving factors. It is not positional and moving his head does not aggravate his dizziness. He denied blurred vision, slurred speech, numbness or tingling. He denied headache, ear pain or discharge. He denied focal arm or leg weakness. He had a history of severe depression and suicide attempt by overdosing on beta-blockers and he has been on venlafaxine and lamotrigine. He had a history of hypothyroidism and he has been on levothyroxine, TSH was normal on October,. He has a history of benign prostatic hypertrophy and he has been on pressors seen and has been stable. He has history of obstructive sleep apnea status post implanted stimulator. In the emergency department, patient has no focal deficit. His vital signs are stable. His routine blood work was remarkable for creatinine 1.53, otherwise normal. His EKG revealed normal sinus rhythm, normal TX interval, normal QRS, normal QTC and no evidence of cardiac arrhythmias. CT scan brain showed no acute infarction or hemorrhage. CTA of the head revealed no hemodynamically significant stenosis, thrombosis or aneurysm. CTA of the neck revealed mild bilateral arteriosclerotic calcification of the carotid bulbs without stenosis, severe stenosis of the small-caliber vertebral artery. Patient is being admitted for dizziness/vertigo, imbalance with concern for probable posterior circulation stroke. Past Medical History Past Medical History (Chronic Problems): Chronic Problems Hypothyroidism (Chronic) Severe depression (Chronic) Obstructive sleep apnea (Chronic) Hypothyroidism (Chronic) Suicide attempt by beta helena overdose (Chronic) Allergies duracef Allergy (Severe, Uncoded 05/29/18 14:04) Vomiting Home Medications: Ambulatory Orders Medication Instructions Recorded Lamotrigine [Lamotrigine] 100 mg PO DAILY 11/08/17 Prazosin HCl [Prazosin HCl] 1 mg PO DAILY 11/08/17 Propranolol HCl [Inderal (Beta 10 mg PO DAILY 11/08/17 [place])] Simvastatin [Zocor] 20 mg PO DAILY 11/08/17 Venlafaxine HCl [Venlafaxine HCl 150 mg PO DAILY 11/08/17 ER] Levothyroxine [Synthroid] 50 mcg PO DAILY 11/10/17 Aspirin E.C. [Ecotrin] 81 mg pe PO DAILY 05/29/18 Bupropion HCl [Wellbutrin Sr] 200 mg PO BID 05/29/18 Esomeprazole Mag Trihydrate 20 mg PO DAILY 05/29/18 [Nexium] Propranolol HCl 10 mg PO QHS 05/29/18 Tamsulosin HCl [Flomax] 0.4 mg PO DAILY 05/29/18 Venlafaxine HCl [Effexor Xr] 75 mg PO QHS 05/29/18 Surgical History: - - Implanted stimulator for obstructive sleep apnea. Psychiatric History: Depression Lives: Spouse/ Significant Other Smoking Status: Never smoker Alcohol: None Drugs: None - *Family History Maternal History Items: - - Maternal and paternal family history of hypertension, heart disease, depression. Paternal History Items: - - Maternal and paternal family history of hypertension, heart disease, depression. Review of Systems Constitutional: Denies: Chills, Fever, Weight Change HEENT: Denies: Head Aches, Sinus Congestion, Sinus Drainage Cardiovascular: Denies: Chest Pain, Palpitations Respiratory: Denies: Cough, Shortness of breath at rest, Sputum production Gastrointestinal: Denies: Abdominal Pain, Nausea, Vomiting Genitourinary: Denies: Dysuria Musculoskeletal: Denies: Joint Pain, Joint Tenderness Skin: Denies: Rash, Wounds Neurological: Denies: Numbness, Tingling, Focal weakness Psychiatric: Denies: Anxiety, Depression, Homicidal Ideations, Suicidal Ideations Hematologic/ Lymphatic: Denies: Easy Bruising, Easy Bleeding - Physical Exam General: Alert, Oriented x3, Cooperative, No apparent distress Neurological: Cranial nerves II-XII grossly intact, Deep Tendon Reflexes 2+/4 and Symmetrical, Neuro grossly intact, Motor Exam 5/5 strength throughout, Muscle tone normal, Sensory exam intact to light touch and pain, Coordination normal - baseline intention tremor Vital Signs Temp Pulse Resp BP Pulse Ox 36.6 C 64 18 106/59 L 94 05/30/18 08:45 05/30/18 08:45 05/30/18 08:45 05/30/18 08:45 05/30/18 08:45 Oxygen Delivery Method Room Air Weight: 75.3 kg Body Mass Index (BMI) 24.5 Intake and Output for Last 24 Hours 05/28/18 05/29/18 05/30/18 23:59 23:59 23:59 Intake Total 330 / 330 1245 / 1245 Output Total 100 / 100 500 / 500 Balance 230 / 230 745 / 745 Laboratory Tests Past 24 Hrs 05/30/18 05/30/18 06:18 06:18 WBC 4.5 RBC 3.37 L Hgb 11.1 L Hct 32.9 L MCV 97.6 H MCH 32.9 H MCHC 33.7 RDW 13.2 RDW Differential 46.1 H Plt Count 231 MPV 8.4 Immature Gran % (Auto) 0.200 Neut % (Auto) 50.9 Lymph % (Auto) 28.8 [place] % (Auto) 12.6 H Eos % (Auto) 6.6 H Baso % (Auto) 0.9 Absolute Neuts (auto) 2.3 Absolute Lymphs (auto) 1.30 Total Counted Not Reportable Sodium 145 Potassium 4.3 Chloride 111 H Carbon Dioxide 24.0 Anion Gap 10 BUN 12 Creatinine 1.29 Estim Creat Clear Calc 55.57 Est GFR (MDRD) Af Amer 71 Est GFR (MDRD) Non-Af 59 L BUN/Creatinine Ratio 9.3 L Glucose 80 Calcium 8.0 L Triglycerides 89 Cholesterol 125 LDL Cholesterol 63 VLDL Cholesterol 18 HDL Cholesterol 44 I reviewed the CAT scan and CTA of the head and neck. There is nothing acute on the CAT scan. The CTA of the head and neck shows a right dominant vertebral artery. The left nondominant vertebral artery does appear to be mildly narrowed I do not in my opinion appreciate severe stenosis. Assessment/Plan nonspecific dizzyness, resolved, CT and CTA unremarkeable no mri due to joaquim stimulator asa daily pt/ot/sp ok to dc
--- NOTE | 2018-05-30 12:23 | CT_ITS ---
STUDY: CT BRAIN WITHOUT CONTRAST REASON FOR EXAM: Male, 67 years old. Dizziness. RADIATION DOSAGE (If Supplied By Facility): CTDIvol = ( 44.99 ) mGy, DLP = ( 779.24 ) mGycm TECHNIQUE: Transaxial CT imaging of the brain was performed without administration of intravenous contrast material. Individualized dose optimization techniques were used for this CT. COMPARISON: 05/29/2018 FINDINGS: Normal soft tissue structures. Normal calvarium. There is mild cerebral atrophy with widening of the extra-axial spaces and ventricular dilatation. There are areas of decreased attenuation within the white matter tracts of the supratentorial brain, consistent with microvascular disease changes. Normal basal ganglia and thalami. Normal brainstem. Normal cerebellum. There is no intracranial hemorrhage. There are no findings of an acute ischemic infarction. Normal visualized paranasal sinuses. CT/Brain/Head without Contrast IMPRESSION: No acute intracranial pathology. Stable chronic involutional changes Electronically Signed: Emigdio Snyder DO at 13:23 EDT Tel , Service support ,
--- NOTE | 2018-05-30 13:40 | DCINST_ITS ---
- Discharge Diagnoses Current Active Problems: Current Active and Chronic Problems Hypothyroidism (Chronic) Severe depression (Chronic) Obstructive sleep apnea (Chronic) You will use the following diet at home:: Other - as per speech therapy. Discharge Activity: Return to Normal Activity Weight Bearing Status: Weight bearing as tolerated Call your doctor if you observe: Fever of 101 or Higher, Shortness of breath, Dizziness, Fainting spells, Chest pain, Increased palpitations (irregular heartbeat), Uncontrolled pain Allergies/Adverse Reactions: Allergies duracef Allergy (Severe, Uncoded 05/29/18 14:04) Vomiting Medications to take at Discharge Lamotrigine 100 mg PO DAILY 11/08/17 Prazosin HCl 1 mg PO DAILY 11/08/17 Propranolol HCl [Inderal (Beta [place])] 10 mg PO DAILY 11/08/17 Simvastatin [Zocor] 20 mg PO DAILY 11/08/17 Venlafaxine HCl [Venlafaxine HCl ER] 150 mg PO DAILY 11/08/17 Levothyroxine [Synthroid] 50 mcg PO DAILY 11/10/17 Aspirin E.C. [Ecotrin] 81 mg pe PO DAILY 05/29/18 Bupropion HCl [Wellbutrin Sr] 200 mg PO BID 05/29/18 Esomeprazole Mag Trihydrate [Nexium] 20 mg PO DAILY 05/29/18 Propranolol HCl 10 mg PO QHS 05/29/18 Tamsulosin HCl [Flomax] 0.4 mg PO DAILY 05/29/18 Venlafaxine HCl [Effexor Xr] 75 mg PO QHS 05/29/18 Primary Care Physician: Margy Patel MD [Primary Care Provider] - Please follow up with your Primary Care Physician in: 1 week. Test Results: Test results from this visit will be discussed in further detail at your follow- up appointment, if applicable.
--- NOTE | 2018-05-30 16:00 | PCM.DC.SUM ---
Discharge Date and Diagnosis Date of Admission: 05/29/18 Date of Discharge: 05/30/18 - Primary Discharge Diagnosis Dizziness/vertigo, acute stroke ruled out. - Secondary Discharge Diagnosis Chronic Problems Hypothyroidism (Chronic) Severe depression (Chronic) Obstructive sleep apnea (Chronic) Hypothyroidism (Chronic) Suicide attempt by beta helena overdose (Chronic) Hospital Course and Treatment Imaging Results: 05/30/18 12:23 CT Head [Brain/Head without Contrast] [CT] Urgent Clinical Impression(s) from Imaging Studies Brain CT 05/29/18 10:36 IMPRESSION: 1. Chronic involutional changes of the brain. 2. No CT evidence of acute intracranial hemorrhage. N.B. : The above information has been verbally conveyed by Fariha Dobbs MD to Cornelio Melvin, Referring Physician, on 05/29/2018 11:20:45 (ET). Electronically Signed: Fariha Dobbs MD at 11:23 EDT , Service support , Head CTA 05/29/18 10:37 IMPRESSION: No CT evidence for hemodynamically significant stenosis, thrombosis or aneurysm. Electronically Signed: Fariha Dobbs MD at 11:37 EDT , Service support , Neck CTA 05/29/18 10:37 IMPRESSION: 1. Mild bilateral atherosclerotic calcification of the carotid bulbs without stenosis. The internal carotid arteries are widely patent. 2. Severe atherosclerotic stenosis of the small caliber, 1-2 mm left vertebral artery. 3. Moderate diffuse right narrowing at the ostium of the otherwise patent, normal caliber right vertebral artery. 4. Notable decreased size and/or decreased contrast enhancement of right thyroid gland. 5. Right sublingual stimulator with generator again noted. Electronically Signed: Parish Singh MD at 12:04 EDT , Service support , Brain CT 05/30/18 12:23 IMPRESSION: No acute intracranial pathology. Stable chronic involutional changes Electronically Signed: Emigdio Snyder DO at 13:23 EDT Tel , Service support , Dr. Mitchell, neurology. Operations: None Procedures: EKG Summary of Care Provided: This is a 67 years old male patient presented to the emergency department because of dizziness, questionable vertigo and imbalance and he was admitted for evaluation for possible posterior circulation stroke. On admission, he did have nystagmus on physical examination. CT scan brain showed no evidence of acute infarction or hemorrhage. CTA of the head revealed no evidence of hemodynamically significant stenosis, thrombosis or aneurysm. CTA of the neck mild bilateral atherosclerotic calcification of the carotid bulbs without stenosis, severe stenosis of the left vertebral artery. EKG revealed normal sinus rhythm without evidence of cardiac arrhythmias or acute ischemic changes. MRI was not done because patient had implanted stimulator for obstructive sleep apnea. Neurology consulted and Dr. Mitchell reviewed the CTA of the neck and stated that the CTA of the neck revealed a right dominant vertebral artery, left nondominant vertebral artery with mild narrowing without severe stenosis. Patient's routine blood work was remarkable for creatinine of 1.53 attributed to acute kidney injury, was treated with IV fluids and creatinine came down to 1.29, improved. Acute stroke ruled out. Patient was seen by PT OT and stated that he can go home. Patient had issues with dysphagia and he had scheduled barium study as outpatient. He was seen by speech therapy and recommended modified barium swallow which patient has an appointment for already. I gave the option to the patient to stay until tomorrow to have this modified barium study done versus going home today and he preferred to go home today and have the modified barium swallow done as outpatient. Patient discharged home in a stable medical condition, discharged on aspirin and statins, continued on his chronic home medications without any changes, recommended follow-up with PCP in 1 week. Discharge Activity: Return to Normal Activity Weight Bearing Status: Weight bearing as tolerated Call your doctor if you observe: Fever of 101 or Higher, Shortness of breath, Dizziness, Fainting spells, Chest pain, Increased palpitations (irregular heartbeat), Uncontrolled pain Home Medications: Medications to take at Discharge Lamotrigine 100 mg PO DAILY 11/08/17 Prazosin HCl 1 mg PO DAILY 11/08/17 Propranolol HCl [Inderal (Beta [place])] 10 mg PO DAILY 11/08/17 Simvastatin [Zocor] 20 mg PO DAILY 11/08/17 Venlafaxine HCl [Venlafaxine HCl ER] 150 mg PO DAILY 11/08/17 Levothyroxine [Synthroid] 50 mcg PO DAILY 11/10/17 Aspirin E.C. [Ecotrin] 81 mg pe PO DAILY 05/29/18 Bupropion HCl [Wellbutrin Sr] 200 mg PO BID 05/29/18 Esomeprazole Mag Trihydrate [Nexium] 20 mg PO DAILY 05/29/18 Propranolol HCl 10 mg PO QHS 05/29/18 Tamsulosin HCl [Flomax] 0.4 mg PO DAILY 05/29/18 Venlafaxine HCl [Effexor Xr] 75 mg PO QHS 05/29/18 Primary Care Physician: Margy Patel MD [Primary Care Provider] - Please follow up with your Primary Care Physician in: 1 week. Disposition: Home Minutes spent on discharge:: 26 Patient Condition:: Stable Medical Necessity - Tobacco Use Smoking Status: Never smoker Meaningful Use Info Meaningful Use Diagnoses (Choose all that apply): None applicable Code Visit OBSV E&M: 60606 Observation care discharge
--- NOTE | 2018-05-30 16:07 | DS.PCM_ITS ---
Discharge Date and Diagnosis Date of Admission: 05/29/18 Date of Discharge: 05/30/18 - Primary Discharge Diagnosis Dizziness/vertigo, acute stroke ruled out. - Secondary Discharge Diagnosis Chronic Problems Hypothyroidism (Chronic) Severe depression (Chronic) Obstructive sleep apnea (Chronic) Hypothyroidism (Chronic) Suicide attempt by beta helena overdose (Chronic) Hospital Course and Treatment Imaging Results: 05/30/18 12:23 CT Head [Brain/Head without Contrast] [CT] Urgent Clinical Impression(s) from Imaging Studies Brain CT 05/29/18 10:36 IMPRESSION: 1. Chronic involutional changes of the brain. 2. No CT evidence of acute intracranial hemorrhage. N.B. : The above information has been verbally conveyed by Fariha Dobbs MD to Cornelio Melvin, Referring Physician, on 05/29/2018 11:20:45 (ET). Electronically Signed: Fariha Dobbs MD at 11:23 EDT , Service support , Head CTA 05/29/18 10:37 IMPRESSION: No CT evidence for hemodynamically significant stenosis, thrombosis or aneurysm. Electronically Signed: Fariha Dobbs MD at 11:37 EDT , Service support , Neck CTA 05/29/18 10:37 IMPRESSION: 1. Mild bilateral atherosclerotic calcification of the carotid bulbs without stenosis. The internal carotid arteries are widely patent. 2. Severe atherosclerotic stenosis of the small caliber, 1-2 mm left vertebral artery. 3. Moderate diffuse right narrowing at the ostium of the otherwise patent, normal caliber right vertebral artery. 4. Notable decreased size and/or decreased contrast enhancement of right thyroid gland. 5. Right sublingual stimulator with generator again noted. Electronically Signed: Parish Singh MD at 12:04 EDT , Service support , Brain CT 05/30/18 12:23 IMPRESSION: No acute intracranial pathology. Stable chronic involutional changes Electronically Signed: Emigdio Snyder DO at 13:23 EDT Tel , Service support , Dr. Mitchell, neurology. Operations: None Procedures: EKG Summary of Care Provided: This is a 67 years old male patient presented to the emergency department because of dizziness, questionable vertigo and imbalance and he was admitted for evaluation for possible posterior circulation stroke. On admission, he did have nystagmus on physical examination. CT scan brain showed no evidence of acute infarction or hemorrhage. CTA of the head revealed no evidence of hemodynamically significant stenosis, thrombosis or aneurysm. CTA of the neck mild bilateral atherosclerotic calcification of the carotid bulbs without stenosis, severe stenosis of the left vertebral artery. EKG revealed normal sinus rhythm without evidence of cardiac arrhythmias or acute ischemic changes. MRI was not done because patient had implanted stimulator for obstructive sleep apnea. Neurology consulted and Dr. Mitchell reviewed the CTA of the neck and stated that the CTA of the neck revealed a right dominant vertebral artery, left nondominant vertebral artery with mild narrowing without severe stenosis. Patient's routine blood work was remarkable for creatinine of 1.53 attributed to acute kidney injury, was treated with IV fluids and creatinine came down to 1.29, improved. Acute stroke ruled out. Patient was seen by PT OT and stated that he can go home. Patient had issues with dysphagia and he had scheduled barium study as outpatient. He was seen by speech therapy and recommended modified barium swallow which patient has an appointment for already. I gave the option to the patient to stay until tomorrow to have this modified barium study done versus going home today and he preferred to go home today and have the modified barium swallow done as outpatient. Patient discharged home in a stable medical condition, discharged on aspirin and statins, continued on his chronic home medications without any changes, recommended follow-up with PCP in 1 week. Discharge Activity: Return to Normal Activity Weight Bearing Status: Weight bearing as tolerated Call your doctor if you observe: Fever of 101 or Higher, Shortness of breath, Dizziness, Fainting spells, Chest pain, Increased palpitations (irregular heartbeat), Uncontrolled pain Home Medications: Medications to take at Discharge Lamotrigine 100 mg PO DAILY 11/08/17 Prazosin HCl 1 mg PO DAILY 11/08/17 Propranolol HCl [Inderal (Beta [place])] 10 mg PO DAILY 11/08/17 Simvastatin [Zocor] 20 mg PO DAILY 11/08/17 Venlafaxine HCl [Venlafaxine HCl ER] 150 mg PO DAILY 11/08/17 Levothyroxine [Synthroid] 50 mcg PO DAILY 11/10/17 Aspirin E.C. [Ecotrin] 81 mg pe PO DAILY 05/29/18 Bupropion HCl [Wellbutrin Sr] 200 mg PO BID 05/29/18 Esomeprazole Mag Trihydrate [Nexium] 20 mg PO DAILY 05/29/18 Propranolol HCl 10 mg PO QHS 05/29/18 Tamsulosin HCl [Flomax] 0.4 mg PO DAILY 05/29/18 Venlafaxine HCl [Effexor Xr] 75 mg PO QHS 05/29/18 Primary Care Physician: Margy Patel MD [Primary Care Provider] - Please follow up with your Primary Care Physician in: 1 week. Disposition: Home Minutes spent on discharge:: 26 Patient Condition:: Stable Medical Necessity - Tobacco Use Smoking Status: Never smoker Meaningful Use Info Meaningful Use Diagnoses (Choose all that apply): None applicable Code Visit OBSV E&M: 82267 Observation care discharge
== END 2018-05-30 15:42 | disposition home or self-care (01) | DRG 149 ==
LOC: ED 13:05 → PCU 13:45
PROVIDERS: Admitting Provider Hospitalist; Emergency Provider Emergency Medicine; Family Provider Internal Medicine; PCP Internal Medicine; Visit Provider Hospitalist
DX: R42 Dizziness and giddiness (principal); N17.9 Acute kidney failure, unspecified; E03.9 Hypothyroidism, unspecified; E78.5 Hyperlipidemia, unspecified; N40.0 Benign prostatic hyperplasia without lower urinary tract symptoms; G47.33 Obstructive sleep apnea (adult) (pediatric); Z79.899 Other long term (current) drug therapy; F32.9 Major depressive disorder, single episode, unspecified; Z91.5 Personal history of self-harm
CPT/HCPCS: 36415; 70450; 70496; 70498; 80048; 80061; 82962; 84484; 85025; 85610; 85730; 93005; 97161; 97166; 97802; 99284; J7030; Q9967

== ENCOUNTER 2018-09-07 18:34 | Emergency (ER) | payer MEDICARE, OTHER, SELFPAY ==
[2018-09-07 18:36] VITALS: BP 133/76; PULSE 96; RESP 16; TEMP 36.7; O2SAT 99; BMI 22.4
--- NOTE | 2018-09-07 19:32 | ED.RN ---
PT IN SUICIDE PRECAUTIONS, THIS RN REMAINED WITH PT UNTIL SITTER ASSIGNED. PT CALM AND COOPERATIVE AT THIS TIME. AT BEDSIDE.
[2018-09-07 20:17] VITALS: RESP 14
[2018-09-07 20:23] LABS: Absolute Lymphocyte Count 0.96 X10^3/ul (0.83-4.51); Absolute Neutrophil Count 3.3 X10^3/uL (2.0-7.7); Basophil# 0.03 X10^3/uL; Basophil% 0.6 % (0-1); Eosinophil# 0.18 X10^3/uL; Eosinophils% 3.6 % (0-5); Hematocrit 36.5 % (40-54); Hemoglobin 11.8 g/dl (13.0-16.5); Lymphocyte # 0.96 X10^3/ul (4.0); Lymphocyte % 19.2 % (19-41); Mean Corp Hgb Conc 32.3 g/gl (32-36); Mean Corpuscular Hgb 31.5 pg (27.0-32.0); Mean Corpuscular Volume 97.3 fL (80-94); Mean Platelet Vol. 8.4 fl (6.2-12.0); Monocyte# 0.54 X10^3/uL; Monocyte% 10.8 % (0-10); Neutrophil # 3.28 X10^3/uL (2.7-7.7); Neutrophil % 65.8 % (47-70); Platelet Count 234 K/mm3 (150-450); RBC Distribution Width CV 13.1 % (11.6-14.6); RBC Distribution Width SD 46.7 fl (35.1-43.9); Red Blood Count 3.75 M/mm3 (4.6-6.2)
[2018-09-07 20:28] LABS: Anion Gap 10 (5-15); BUN 18 mg/dL (7-18); BUN/Creat Ratio 13.2 RATIO (10-20); Calcium,Total 8.7 mg/dL (8.5-10.1); Chloride 106 mmol/L (98-107); Creatinine, Serum 1.36 mg/dL (0.70-1.30); EST Glomerular Filtration Rate 55 mL/min (>60); Est Glom Filt Rate - Afr Amer 67 mL/min (>60); Estimated Creatinine Clearance 50.51 ml/min; Glucose 77 mg/dL (74-106); Sodium Level 144 mmol/L (136-145)
--- NOTE | 2018-09-07 20:31 | ED.RN ---
PT ADMITS TO FEELING SUICIDAL AT THIS TIME. STATES HE HAS SEVERAL PLANS, ONE IS TO OVERDOSE ON HIS PRESCRIPTION MEDICATIONS. PT STATES HE HAS ACCESS TO ENOUGH MEDS TO TAKE LETHAL DOSE. PT REMAINS CALM AND COOPERATIVE, REMAINS AT BEDSIDE.
[2018-09-07 20:38] LABS: POSITIVE COUNT NO; POSITIVE DIFFERENTIAL NO; POSITIVE MORPHOLOGY NO
[2018-09-07 21:00] VITALS: RESP 14
[2018-09-07 21:33] LABS: Alcohol, Blood (Medical)-Serum < 3.0 mg/dL
--- NOTE | 2018-09-07 21:38 | ED.RN ---
CALLED CRISIS ABOUT ANOTHER PT, AND ADVISED DIEGO THIS PT WILL NEED TO BE SEEN. SHE IS AT [facility], AND WILL COME HERE WHEN DONE
[2018-09-07 22:00] VITALS: BP 119/68; PULSE 69; RESP 16; O2SAT 98
--- NOTE | 2018-09-07 22:59 | ED.RN ---
CALLED CRISIS TO CHECK THE STATUS OF ARRIVAL @ 22:30, NO RESPONSE BACK AT THIS TIME
[2018-09-07 23:00] VITALS: RESP 18
[2018-09-08] VITALS: RESP 16
[2018-09-08 00:10] LABS: Amphetamine Urine VISTA NEGATIVE (<1000 ng/mL); Barbiturate Urine VISTA NEGATIVE (< 200 ng/mL); Benzodiazepine Urine VISTA NEGATIVE (< 200 ng/mL); Cocaine Urine VISTA NEGATIVE (< 300 ng/mL); Ecstacy Urine VISTA POSITIVE (< 500 ng/mL); Methadone Urine VISTA NEGATIVE (< 300 ng/mL); PCP Urine VISTA NEGATIVE (< 25 ng/mL); THC Urine VISTA NEGATIVE (< 50 ng/mL); Vista UDS pH Range 6
--- NOTE | 2018-09-08 00:16 | ED.VISSUMM ---
- ER Visit Summary Date of Service: 09/08/18 Chief Complaint: Suicidal ideation History of Present Illness: The patient is a 68 M presenting with suicidal ideation. Patient states he has been depressed for awhile. He states he had thoughts of overdosing on Benadryl today. He has a history of previous overdose on propranolol in Oct 2017. He is on Effexor, Lamictal, and Wellbutrin. He does not recall anything that worsened today in particular. Physical Examination: Vitals are stable. Patient is afebrile. Alert no acute distress. HEENT exam is unremarkable. Neck is supple. Lungs are clear and equal bilaterally. Heart is regular rate and rhythm. Abdomen is soft nontender nondistended. Extremities are unremarkable. Skin is warm and dry. No focal neurologic deficit. Depressed affect, suicidal ideation Remainder of exam is unremarkable. Emergency Department Course and Treatment: CBC, chemistries unremarkable other than creatinine 1.36. Alcohol is negative. Discussed with the counseling center for evaluation. Disposition: Per counseling center Impression: Suicidal ideation This note was generated with [employer] dictation software. It may contain incorrect words, spelling, and punctuation that were not noted in review of the chart prior to signing ED Disposition - Plan for ED Patient: Chief Complaint: Suicidal Referrals: Margy Patel MD [Primary Care Provider] -
[2018-09-08 01:00] VITALS: RESP 16
--- NOTE | 2018-09-08 01:51 | ED.DEP ---
ED Disposition - Plan for ED Patient: Disposition: Home or Assisted Living Chief Complaint: Suicidal Instructions: ED Contract, No Harm Additional Instructions: Aloe up with your psychiatrist as soon as possible
[2018-09-08 02:00] VITALS: RESP 16
--- NOTE | 2018-09-08 02:10 | ED.RN ---
[facility] [place] DOCTOR PAGED AT THIS TIME FOR CONSULT
[2018-09-08 03:42] VITALS: BP 148/80; PULSE 95; RESP 16; O2SAT 99
== END 2018-09-08 03:43 | disposition home or self-care (01) ==
PROVIDERS: Emergency Provider Emergency Medicine; Family Provider Internal Medicine; PCP Internal Medicine
DX: F32.9 Major depressive disorder, single episode, unspecified (principal); R45.851 Suicidal ideations; Z91.5 Personal history of self-harm; Z79.82 Long term (current) use of aspirin; Z79.899 Other long term (current) drug therapy
CPT/HCPCS: 80048; 80307; 80320; 85025; 99285; J7050; G0480

== ENCOUNTER 2020-02-13 15:40 | Emergency (ER) | payer MEDICARE, OTHER, SELFPAY ==
[2020-02-13 15:41] VITALS: BP 144/71; PULSE 77; RESP 18; TEMP 37.1; O2SAT 99; BMI 22.5
--- NOTE | 2020-02-13 15:53 | CT_ITS ---
STUDY: CT ABDOMEN AND PELVIS WITH CONTRAST REASON FOR EXAM: Male, 69 years old. SUDDEN RUQ PAIN, HX OF THYROID CA RADIATION DOSAGE (If Supplied By Facility): CTDIvol = ( 10.91 ) mGy, DLP = ( 419.99 ) mGycm TECHNIQUE: Transaxial images were obtained from the dome of the diaphragm to the symphysis pubis without oral contrast. IV 100mL Isovue-300 was administered. Sagittal and coronal images were reconstructed. Individualized dose optimization techniques were used for this CT. COMPARISON: None. FINDINGS: Limited views through the lower chest show nodular densities in the right lung base with a definite 1 cm nodule, and nodules in the medial right lung base measuring 1.[address] of the chest is recommended. Normal liver with incidental subcentimeter cysts. Normal gallbladder and extrahepatic biliary system. Normal spleen. Normal pancreas. Normal bilateral adrenal glands. Normal right kidney. Left kidney has a heterogeneous enhancing mass of the lower left kidney measuring 3.2 cm, suspicious for neoplasm. No other abnormality of the left kidney. Evaluation of the GI tract is limited by absence of oral contrast. Cannot exclude stomach wall thickening. No dilated loops of bowel or evidence for obstruction. Cannot exclude segmental thickening of the lora of the small or large bowel. Cannot exclude enteritis or colitis. Moderate diffuse fecal retention. Diverticulosis without definite diverticulitis. Appendix is not definite seen. There is a small left inguinal hernia containing a short segment of bowel, which may be incarcerated, but is not causing definite obstruction. There is diffuse atherosclerotic calcification of the abdominal aorta, without a demonstrated aneurysm. Normal inferior vena cava. Normal retroperitoneum. Normal urinary bladder. There is enlargement of the prostate gland. Normal abdominal wall. There are diffuse degenerative changes of the visualized lumbar spine. CT/Abdomen/Pelvis W IV Cont ONLY IMPRESSION: Nodules in the right lung base. CT of the chest recommended. Massive left kidney suggestive of neoplasm. Left inguinal hernia contains a short segment of bowel which could be incarcerated but there is no evidence for obstruction. Evaluation of the GI tract limited by absence of a oral contrast. Electronically Signed: Carlos Lara MD at 17:11 EDT , Service support ,
--- NOTE | 2020-02-13 16:01 | ED.DCSUM_ITS ---
History of Present Illness Chief Complaint: Abd Pain Informant: Patient Onset: Today Context: Sudden Onset Timing: Continuous Current Severity: Moderate Maximum Severity: Severe Narrative: The patient is a 69-year-old male with medical history significant for hypertension depression who presents to the emergency department with sudden onset midepigastric pain into his right upper quadrant. The patient states his pain started about 45 minutes ago. He states it was very severe. He states the pain has relented, but is not fully gone away. He states he never had pain like this before. He was acutely nauseated but denies any vomiting. He denies any fevers or chills. He states he had no history of prior abdominal surgery. He denies any difficulty urinating or flank pain. He denies any pain similar with food and denies any intolerance of exertion. Prior similar symptoms: No Recent Illness/Hospitalization: No Past Medical History - Allergies and Home Meds Allergies/Adverse Reactions: Allergies clindamycin [From Cleocin] Allergy (Verified 02/13/20 15:41) Other HYPOTENSION duracef Allergy (Severe, Uncoded 02/13/20 15:41) Vomiting Primary Care Physician: Margy Patel MD [Primary Care Provider] - Prior records reviewed: Yes Past Medical History: - - Hypertension Surgical History: - - Implanted stimulator for obstructive sleep apnea. Smoking Status: Never smoker - Family History Maternal Family History: Reports: - - Maternal and paternal family history of hypertension, heart disease, depression. Paternal Family History: Reports: - - Maternal and paternal family history of hypertension, heart disease, depression. Review of Systems General: Denies: Chills, Fever, Sweats Eyes: Denies: Visual changes - bilaterally, Diplopia ENT: Denies: Rhinorrhea, Sore throat Cardiovascular: Denies: Chest pain, Palpitations Respiratory: Denies: Dyspnea, Cough, Dyspnea on exertion Gastrointestinal: Reports: Abdominal pain, Nausea. Denies: Vomiting, Diarrhea, Melena, Hematochezia Genitourinary: Denies: Dysuria, Hematuria, Frequency Musculoskeletal: Denies: Back pain, Extremity Pain Skin: Denies: Rash, Wounds Neurological: Denies: Headache, Weakness, Numbness Physical Exam Vital Signs/Narrative: Vital Signs Temp Pulse Resp BP Pulse Ox 02/13/20 15:41 98.8 F 77 18 144/71 H 99 Inital Vital Signs reviewed: Yes General: Well nourished, Well developed, No Acute Distress Head: Normocephalic, Atraumatic Eyes: Perrl, EOMI ENT: Moist mucous membranes, No rhinorrhea Neck: Supple, Nontender Cardiovascular: Regular rate, Regular rhythm, No murmurs Respiratory: No distress, CTA bilaterally, Chest nontender Abdomen: Soft, Nondistended, Normal bowel sounds, Tender. Negative for: Guarding, Rebound tenderness Back: Nontender, Normal Inspection Extremities: Nontender, No edema Skin: Normal color, No rash Neurological: Alert, Oriented x3, Cranial nerves II-XII grossly intact, Normal Strength, Normal Sensation Psychological: Normal affect, Normal Mood Diagnostic/Tx/Re-eval Clinical Impression(s) from Imaging Studies Abdomen/Pelvis CT 02/13/20 15:53 IMPRESSION: Nodules in the right lung base. CT of the chest recommended. Massive left kidney suggestive of neoplasm. Left inguinal hernia contains a short segment of bowel which could be incarcerated but there is no evidence for obstruction. Evaluation of the GI tract limited by absence of a oral contrast. Electronically Signed: Carlos Lara MD at 17:11 EDT , Service support , Gallbladder Ultrasound 02/13/20 17:12 IMPRESSION: Tiny polyp of the gallbladder. No stones and no acute abnormality. Electronically Signed: Carlos Lara MD at 18:38 EDT , Service support , Abnormal Lab Results 02/13/20 02/13/20 02/13/20 16:02 16:02 18:50 WBC 5.2 RBC 3.94 L Hgb 12.6 L Hct 37.3 L MCV 94.7 H MCH 32.0 MCHC 33.8 RDW Std Deviation 46.1 H RDW Coeff of Marcus 13.2 Plt Count 284 MPV 8.9 Immature Gran % (Auto) 0.200 Neut % (Auto) 55.7 Lymph % (Auto) 30.7 [place] % (Auto) 9.9 Eos % (Auto) 2.7 Baso % (Auto) 0.8 Absolute Neuts (auto) 2.9 Absolute Lymphs (auto) 1.61 Nucleated RBC % 0 Sodium 140 Potassium 4.4 Chloride 109 H Carbon Dioxide 27.0 Anion Gap 4 L BUN 18 Creatinine 1.39 H Estim Creat Clear Calc 47.74 Est GFR (MDRD) Af Amer 65 Est GFR (MDRD) Non-Af 54 L BUN/Creatinine Ratio 12.9 Glucose 88 Calcium 9.1 Total Bilirubin 0.50 AST 28 ALT 52 Alkaline Phosphatase 71 Total Protein 6.8 Albumin 3.7 Globulin 3.1 Albumin/Globulin Ratio 1.2 Lipase 96 Urine Color Yellow Urine Clarity Clear Urine pH 7.0 Ur Specific [place] 1.005 Urine Protein Negative Urine Glucose (UA) Normal Urine Ketones 15 H Urine Occult Blood Negative Urine Nitrite Negative Urine Bilirubin Negative Urine Urobilinogen Normal Ur Leukocyte Esterase 25 H Urine RBC 0 SEEN Urine WBC 0-5 SEEN Ur Squamous Epith Cells 0 SEEN Urine Bacteria 0 SEEN Urine Mucus 0 SEEN - Medical Decision Making Clinical Impression(s) from Imaging Studies Abdomen/Pelvis CT 02/13/20 15:53 IMPRESSION: Nodules in the right lung base. CT of the chest recommended. Massive left kidney suggestive of neoplasm. Left inguinal hernia contains a short segment of bowel which could be incarcerated but there is no evidence for obstruction. Evaluation of the GI tract limited by absence of a oral contrast. Electronically Signed: Carlos Lara MD at 17:11 EDT , Service support , Gallbladder Ultrasound 02/13/20 17:12 IMPRESSION: Tiny polyp of the gallbladder. No stones and no acute abnormality. Electronically Signed: Carlos Lara MD at 18:38 EDT , Service support , Abnormal Lab Results 02/13/20 02/13/20 02/13/20 16:02 16:02 18:50 WBC 5.2 RBC 3.94 L Hgb 12.6 L Hct 37.3 L MCV 94.7 H MCH 32.0 MCHC 33.8 RDW Std Deviation 46.1 H RDW Coeff of Marcus 13.2 Plt Count 284 MPV 8.9 Immature Gran % (Auto) 0.200 Neut % (Auto) 55.7 Lymph % (Auto) 30.7 [place] % (Auto) 9.9 Eos % (Auto) 2.7 Baso % (Auto) 0.8 Absolute Neuts (auto) 2.9 Absolute Lymphs (auto) 1.61 Nucleated RBC % 0 Sodium 140 Potassium 4.4 Chloride 109 H Carbon Dioxide 27.0 Anion Gap 4 L BUN 18 Creatinine 1.39 H Estim Creat Clear Calc 47.74 Est GFR (MDRD) Af Amer 65 Est GFR (MDRD) Non-Af 54 L BUN/Creatinine Ratio 12.9 Glucose 88 Calcium 9.1 Total Bilirubin 0.50 AST 28 ALT 52 Alkaline Phosphatase 71 Total Protein 6.8 Albumin 3.7 Globulin 3.1 Albumin/Globulin Ratio 1.2 Lipase 96 Urine Color Yellow Urine Clarity Clear Urine pH 7.0 Ur Specific [place] 1.005 Urine Protein Negative Urine Glucose (UA) Normal Urine Ketones 15 H Urine Occult Blood Negative Urine Nitrite Negative Urine Bilirubin Negative Urine Urobilinogen Normal Ur Leukocyte Esterase 25 H Urine RBC 0 SEEN Urine WBC 0-5 SEEN Ur Squamous Epith Cells 0 SEEN Urine Bacteria 0 SEEN Urine Mucus 0 SEEN The patient presents with acute onset abdominal pain. 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 He has had no fevers or chills. It was sudden onset. IV was established. The patient was given analgesics and antiemetics. Metabolic work-up was pursued. Screening labs including CBC, chemistry, liver functions, and lipase are all unremarkable. Urine does not show evidence of infection. CT demonstrates questionable inguinal hernia, but the patient has no tenderness over this area. There is no evidence of bowel obstruction. There is concerning area in the left kidney for neoplasm and I did appliance counselor the patient on these findings. His pain is almost totally resolved. I did obtain a right upper quadrant ultrasound which was negative. The patient is now resting pain- free. I did appliance counselor on importance of following up for this abnormality in his left kidney and he is comfortable with this plan of care. He will be discharged home. Impression 1. Acute right upper quadrant pain-resolved ED Disposition - Plan for ED Patient: Instructions: ED Unknown Causes of Abdominal Pain Male Prescriptions: Acetaminophen/Codeine #3 [Tylenol#3] 1 tab PO Q6H PRN PRN #12 tab PRN Reason: Pain/Inflammation Prescription Printed Referrals: Margy Patel MD [Primary Care Provider] -
[2020-02-13 16:08] LABS: Absolute Lymphocyte Count 1.61 X10^3/uL (0.83-4.51); Absolute Neutrophil Count 2.9 X10^3/uL (2.0-7.7); Basophil# 0.04 X10^3/uL; Basophil% 0.8 % (0-1); Eosinophil# 0.14 X10^3/uL; Eosinophils% 2.7 % (0-5); Hematocrit 37.3 % (40-54); Hemoglobin 12.6 g/dL (13.0-16.5); Lymphocyte # 1.61 X10^3/ul (4.0); Lymphocyte % 30.7 % (19-41); Mean Corp Hgb Conc 33.8 g/dL (32-36); Mean Corpuscular Volume 94.7 fL (80-94); Mean Platelet Vol. 8.9 fl (6.2-12.0); Monocyte# 0.52 X10^3/uL; Monocyte% 9.9 % (0-10); NRBC Flagged by Analyzer 0 % (0-5); Neutrophil # 2.92 X10^3/uL (2.7-7.7); Neutrophil % 55.7 % (47-70); Platelet Count 284 K/mm3 (150-450); RBC Distribution Width CV 13.2 % (11.6-14.6); RBC Distribution Width SD 46.1 fl (35.1-43.9); Red Blood Count 3.94 M/mm3 (4.6-6.2); White Blood Count 5.2 K/mm3 (4.4-11.0)
[2020-02-13] MEDS: Ondansetron 4 MG/2 ML Vial IV (16:09)
[2020-02-13] MEDS: Morphine 4 MG/ML Syringe IV (16:09)
[2020-02-13] MEDS: 0.9% Normal Saline 1,000 ML 1000 ML IV (16:09)
[2020-02-13 16:27] LABS: ALB/GLOB Ratio 1.2 RATIO (0.9-2.4); AST(SGOT) 28 U/L (15-37); Alanine Aminotransfer ALT/SGPT 52 U/L (16-61); Albumin, Serum 3.7 g/dL (3.2-5.0); Alkaline Phosphatase 71 U/L (45-117); Anion Gap 4 (5-15); BUN 18 mg/dL (7-18); BUN/Creat Ratio 12.9 RATIO (10-20); Calcium,Total 9.1 mg/dL (8.5-10.1); Chloride 109 mmol/L (98-107); Creatinine, Serum 1.39 mg/dL (0.70-1.30); EST Glomerular Filtration Rate 54 mL/min (>60); Est Glom Filt Rate - Afr Amer 65 mL/min (>60); Estimated Creatinine Clearance 47.74 ml/min; Globulin 3.1 g/dL (2.2-4.2); Glucose 88 mg/dL (74-106); Lipase 96 U/L (73-393); Potassium 4.4 mmol/L (3.5-5.1); Protein, Total 6.8 g/dL (6.4-8.2); Sodium Level 140 mmol/L (136-145)
--- NOTE | 2020-02-13 17:12 | US_ITS ---
STUDY: ABDOMINAL ULTRASOUND - RIGHT UPPER QUADRANT REASON FOR VISIT: Male, 69 years old RUQ PAIN TECHNIQUE: Ultrasound evaluation of the right upper quadrant was performed with real-time and static edmondson-scale imaging. TECHNICAL QUALITY: Adequate. COMPARISON: CT scan of the same day.. FINDINGS: Liver: The liver measures 14.0 cm. There is normal echogenicity of the liver. The bile ducts are within normal limits. There is hepatic color flow. The direction of portal flow is hepatopetal. There is a 6 mm cyst of the right lobe. Gallbladder: Normal distended gallbladder. The gallbladder wall measures 2 mm. There is a negative sonographic Hawkins''s sign. There is no pericholecystic fluid. There are no gallstones. There is a tiny 3 mm polyp. Common Bile Duct (C.B.D.): The common bile duct measures mm. Pancreas: There is nonvisualization of the pancreas. Right Kidney: There is mild atrophy of the right kidney. The right kidney measures 8.8 cm. Normal renal cortex. The right cortex measures 1.4 cm. There is no demonstrated renal mass or cyst. There is no right hydronephrosis. US/Gallbladder IMPRESSION: Tiny polyp of the gallbladder. No stones and no acute abnormality. Electronically Signed: Carlos Lara MD at 18:38 EDT , Service support ,
[2020-02-13 18:34] VITALS: BP 119/60; PULSE 115; RESP 16; O2SAT 95
[2020-02-13 18:57] LABS: Bacteria 0 SEEN /hpf (None Seen); Mucous, Urine 0 SEEN /hpf (<or=2+); Red Blood Cells-Urine 0 SEEN /hpf (0-5); Squamous Epithelial Cells - UA 0 SEEN /hpf (0-5)
[2020-02-13 19:09] LABS: Color, Urine Yellow (Yellow); Glucose, Dipstick Normal (Normal); Ketone-Dipstick 15 mg/dl (Negative); Leukocyte Esterase-Dipstick 25 /ul (Negative); Nitrite-Dipstick Negative (Negative); Occult Blood-Urine Negative /ul (Negative); Protein-Dipstick Negative (Negative); Specific Gravity, Urine 1.005 (1.002-1.030); Urine Bilirubin Dipstick Negative (Negative); Urine Clarity Clear (Clear); Urine Urobilinogen Normal (Normal)
[2020-02-13 19:15] LABS: White Blood Cells 0-5 SEEN /hpf (0-5)
[2020-02-13 19:34] VITALS: BP 131/71; PULSE 80; RESP 16; O2SAT 99
== END 2020-02-13 19:55 | disposition home or self-care (01) ==
PROVIDERS: Emergency Provider Emergency Medicine; PCP Internal Medicine
DX: R10.13 Epigastric pain (principal); R11.0 Nausea; I10 Essential (primary) hypertension; F32.9 Major depressive disorder, single episode, unspecified; Z79.899 Other long term (current) drug therapy; Z88.1 Allergy status to other antibiotic agents; Z85.850 Personal history of malignant neoplasm of thyroid; R10.11 Right upper quadrant pain
CPT/HCPCS: 74177; 76705; 80053; 81001; 83690; 85025; 96361; 96374; 96375; 99285; J7030; Q9967; A4216; J2405

== ENCOUNTER 2020-02-14 20:06 | Observation (INO) | payer MEDICARE, OTHER, SELFPAY ==
[2020-02-14] VITALS (10 sets, daily range): BP systolic 112–144; BP diastolic 56–92; PULSE 84–105; RESP 16–18; TEMP 36.8–37.9; O2SAT 95–99; BMI 22.5; BMI 22.1; BMI 22.9; BMI 23.0
--- NOTE | 2020-02-14 20:17 | PCM.HP.BLA ---
Problem List (1) Incarcerated left inguinal hernia Status: Acute History and Physical Date of Admission: 02/14/20 69-year-old gentleman. He was seen in the [facility] emergency room last night with abdominal pain nausea and CT scan evidence of a left inguinal hernia. By patient report no attempt was made to reduce it. I saw the patient earlier this morning and was able to relatively easily reduce the hernia and the office. My notes reflect the following below. Apparently the patient has not been feeling well all day. Approximately 8:00 tonight he called the on-call service and was recommended to come to the emergency room. He seems to be uncomfortable. I was again able to reduce the inguinal hernia it is not clear that it is completely relieved his discomfort. For that reason I recommend urgent repair. MR#: [id number] Acct: [id number] Name: KRISTIN CORRIGAN Rep #: [id number] : 1950 Provider: Miguel Angel Doran MD Age/Sex: 69/M Location: [facility] Status: Signed Intake Vital Signs 02/14/20 BMI 22.5 02/14/20 Height 5 ft 8 in 02/14/20 Weight: 148 lb 5 oz 02/14/20 BMI 22.5 02/14/20 BP 116/73 02/14/20 Blood Pressure Location Rt brachial 02/14/20 Position Sitting 02/14/20 Respiration 18 02/14/20 Pulse 89 02/14/20 Temp 97.1 F L 02/14/20 Temp Source Temporal 02/14/20 Pulse Oximetry (%) 96 02/14/20 BMI 22.5 Intake Visit Reasons: ER/FU, Inguinal Hernia Chief Complaint: abd pain, LIH Medical Detailist Required: No Is patient in pain?: Yes (diffuse abdomen and LLQ ) Allergies clindamycin [From Cleocin] Allergy (Verified 02/14/20 10:20) Other duracef Allergy (Severe, Uncoded 02/13/20 15:41) Vomiting Medications Prazosin HCl 2 mg PO DAILY 11/08/17 [History Confirmed 02/14/20] Venlafaxine HCl [Venlafaxine HCl ER] 150 mg PO QHS 11/08/17 [History Confirmed 02/14/20] Tamsulosin HCl [Flomax] 0.8 mg PO DAILY 05/29/18 [History Confirmed 02/14/20] Venlafaxine HCl [Effexor Xr] 75 mg PO DAILY 05/29/18 [History Confirmed 02/14/20] Atorvastatin Calcium 40 mg PO DAILY 09/07/18 [History Confirmed 02/14/20] Ipratropium/Albuterol Respimat [Combivent Respimat Inhal [place]] 2 puff IH Q4H PRN PRN 09/07/18 [History Confirmed 02/14/20] Lamotrigine 200 mg PO BID 09/07/18 [History Confirmed 02/14/20] Acetaminophen/Codeine #3 [Tylenol#3] 1 tab PO Q6H PRN PRN #12 tab 02/13/20 [Rx Confirmed 02/14/20] Omeprazole 40 mg PO DAILY 02/13/20 [History Confirmed 02/14/20] levothyroxine 125 mcg tablet PO 02/14/20 [History Confirmed 02/14/20] primidone 50 mg tablet PO 02/14/20 [History Confirmed 02/14/20] sildenafil (pulm.hypertension) 20 mg tablet PO 02/14/20 [History Confirmed 02/14/20] PFSH Medical History Hyperlipidemia (Acute) DJD (degenerative joint disease), lumbar (Acute) DJD (degenerative joint disease) of thoracic spine (Acute) DJD (degenerative joint disease) of cervical spine (Acute) History of thyroid cancer (Acute) Hemorrhoid (Acute) GERD (gastroesophageal reflux disease) (Acute) Anxiety (Acute) Hypothyroidism (Chronic) Severe depression (Chronic) Obstructive sleep apnea (Chronic) Suicide attempt by beta stephanie overdose (Chronic) Surgical History History of colonoscopy (Acute ~2012) Hx of LASIK (Acute) History of thyroidectomy, total (Acute) History of implanted electronic device (Acute) Social History (Updated 02/14/20 @ 10:[address] Miguel Angel Doran MD) Smoking Status: Never smoker HPI HPI HPI: KRISTIN CORRIGAN, is a 69 M who presents to the office today for HPI HPI Surgical H&P: Yes HPI: KRISTIN COKERER, is a 69 M who presents to the office today for surgical consultation regarding an emergency room visit yesterday for him. For about 3 years he is known that he has had a left inguinal hernia. It has never particularly been bothersome. Yesterday he had acute onset of mid abdominal pain right upper quadrant pain associated with some nausea. He went to the emergency room and was evaluated with laboratory which was not remarkable. He had a right upper quadrant ultrasound showing a 3 mm polyp in the gallbladder. No stones. 6 mm cyst right lobe of the liver. Right kidney not remarkable. White blood cell count was 5.2 with hemoglobin 12.6 medical 37.3 and a platelet count of 284,000. BUN [address] scan without oral contrast suggested medial right lung base 1.4 and 1.14 cm nodules. No dilated loops of small bowel. Evidence of a left inguinal hernia containing a segment of bowel not definitively causing obstruction. There was felt to be a mass in the left kidney. There is a typographical air that discusses massive left kidney. It should state mass in left kidney. Urinalysis occult blood was negative. 0-5 white cells. No red cells. Chart review from the [facility] demonstrates November 23, 2017 the patient had an upper endoscopy. Low-grade esophagitis identified with a 3 cm hiatal hernia and a moderate obstructing Schatzki ring. That was dilated to 16.5 mm. ROS General General: Yes fatigue; no weight change, appetite, colon cancer, breast cancer or weakness HEENT HEENT: No difficulty swallowing, eye injury, eye surgery, swollen glands or hoarseness Endo Endocrine: Yes thyroid cancer; no thyroid disease, diabetes mellitus, Hair loss, heat intolerance or cold intolerance Musc Musculoskeletal: Yes back problems; no arthritis, rheumatoid arthritis, gout or joint pain Cardio Cardiovascular: No murmur, pacemaker, heart disease, atrial fibrillation, high blood pressure, heart attack, heart stent, palpitations, shortness of breat with exertion or chest pain Psych Psychiatric: Yes depression and anxiety; no hearing voices Resp Respiratory: No shortness of breath, No sleep apnea, No cough, No COPD, No asthma, No emphysema, No wheezing Gastro Gastrointestinal: Yes abdominal pain, No nausea or vomiting, No diarrhea, No constipation, No blood in stool, Yes acid reflux, Yes hemorrhoids, No ulcers, No gallbladder problem, No black,tarry stools [place] Hematologic: No blood thinners, No blood disorders, No bleeding, No anemia, No blood clots Neuro Neurologic: No weakness Exam Const General: cooperative, healthy appearing, comfortable, no acute distress Nutritional Appearance: average body habitus Orientation: alert, awake HENNE Head: normal to inspection Neck Neck: normal visual inspection Chest Chest palpation & inspection: normal inspection of the chest Resp Effort & Inspection: normal respiratory effort Auscultation: clear to auscultation bilaterally Cardio Rate: regular rate Rhythm: regular rhythm Heart Sounds: no murmurs GI Palpation: soft, no hepatosplenomegaly Auscultation: normal bowel sounds Other: Not pulsatile not expansile Other: Testicles are descended bilaterally. No defect or tenderness right groin. Obvious left inguinal hernia tender to light palpation. With gentle progressive manipulation I was able to achieve complete reduction. Inspection suggest indirect inguinal hernia. Musc Cervical Spine: normal cervical lordosis Neuro Cognition: normal cognition Extrem General: calf tenderness Psych Affect: normal affect Assessment & Plan Problems 1. Gallbladder polyp K82.4 2. Left kidney mass N28.89 3. Inguinal hernia of left side without obstruction or gangrene K40.[address] scan R93.5 Plan Regarding the patient's very minuscule finding on gallbladder ultrasound suggesting a possible polyp. I have reviewed the images. Although this could represent a polyp it equally could simply represent adenosis. No surgical treatment required this time. I recommend follow-up gallbladder ultrasound at 1 year and we will assist with scheduling Regarding the patient's mass in the left kidney identified on CT. I recommend a left renal ultrasound which we will schedule. The patient already is seeing [facility] urology and I recommend follow-up appointment with them. The patient and his Pat concur that they will assist with scheduling Regarding the patient's small nodule right chest x2 seen on abdominal CT. I will defer to primary care physician Dr. Margy Patel. Regarding the patient's abdominal pain diffuse mild soreness and reduced but challenging Steven reduced left inguinal hernia I am recommending the patient a laparoscopic left inguinal hernia repair with mesh. In detail I have discussed the technique, benefit, risks, alternatives. I would like to have the opportunity to inspect intra-abdominally and to help repair support the left groin with mesh laparoscopically. He has had an opportunity to ask and have questions answered. During this Covid-19 pandemic operating hours are very limited. We will try to schedule and expedite his urgent but not emergent care as soon as feasible. The patient is aware that he is at higher risk for recurrent incarceration of the hernia and he has been educated on self manipulation to help reduce it. He will contact me if there are difficulties. We have been able to achieve a tentative operative date of February 15. Procedure essential: Yes On 01/03/2020 the [place] Department of Health ([facility]) Public Order signed by [facility] Director My Carter M.D., regarding the Management of Non-Essential Surgeries and Procedures for the purpose of preserving Personal Protective Equipment (PPE) and critical hospital capacity and resources within [place] went into effect as of 01/04/2020 at 5:00PM. According to the [facility] Public Order: This action will remain in full force and effect until the State of Emergency declared by the Governor no longer exists or the Director of the [facility] rescinds or modifies this Order. This [facility] order stated all non-essential or elective surgeries and procedures that utilize PPE should be delayed unless there is undue risk to the current or future health of a patient. After reviewing the aforementioned [facility] Public Order and the patients clinical case, I have determined that the scheduled procedure meets the criteria to go forward. Reason for performing procedure: There is a threat to the patient?s life if the surgery or procedure is not performed. Yes There is a threat of permanent dysfunction of an extremity or organ system. There is a risk of metastasis or progression of staging. There is a risk of rapidly worsening to severe symptoms (time sensitive). Yes Cc: Dr. Margy Doran M.D., F.A.C.S. I recommended the patient a laparoscopic inspection and laparoscopic left inguinal hernia repair. I recommend that that be performed urgently tonight as the patient is not able to sense when the hernia is out and is not able to keep the hernia reduced himself nor be comfortable with that. I am afraid that further delay may compromise bowel. He has had an opportunity to ask and have questions answered. Last food was at 1030 this morning. The patient was previously scheduled to have surgery in 2 days when the OR timing permits. We will proceed urgently tonight. Miguel Angel Doran M.D., F.A.C.S.
[2020-02-14] MEDS: Bupivacaine Mpf 0.5% 30 ML VIAL (20:36)
--- NOTE | 2020-02-14 20:51 | ED.VISSUMM ---
- ER Visit Summary Date of Service: 02/14/20 Chief Complaint: Left lower abdominal pain History of Present Illness: The patient is a 69 M who presents with left lower abdominal pain that began yesterday. Patient states that it started rather suddenly. Patient states yesterday it was worse in the upper abdomen but last night it migrated to the left lower abdomen and left inguinal area. Patient describes the pain is sharp and burning. Patient admits to some nausea but denies any vomiting. Patient denies any diarrhea, melena, or hematochezia. Patient denies any dysuria or hematuria. Patient admits to subjective fevers and chills. Patient also admits to a slight cough. Physical Examination: Vital signs are stable. Patient is afebrile. Patient is in no acute distress. Neck is supple. Trachea is midline. There is no JVD. Heart was regular rate and rhythm. Lungs are clear and equal bilaterally. Abdomen is soft. There is left lower quadrant tenderness. Bowel sounds were slightly diminished. Cranial nerves II through XII are intact. There is no focal motor or sensory deficit noted. Emergency Department Course and Treatment: Dr. Miguel Angel Doran was in to evaluate the patient and will take the patient to the operating room tonight. Patient understands and was agreeable with the plan. All questions were answered. Disposition: Admit to hospital Impression: Left inguinal hernia This note was generated with [employer] dictation software. It may contain incorrect words, spelling, and punctuation that were not noted in review of the chart prior to signing ED Disposition - Plan for ED Patient: Disposition: Acute Care Hospital [facility] Diagnosis: Left inguinal hernia
[2020-02-14] MEDS: Cefazolin 2 GM in 0.9% Normal Saline 100 ML IV (21:02)
--- NOTE | 2020-02-14 22:33 | DCINST_ITS ---
Discharge Diet: Light diet - advance as tolerated - if you have questions about your diet instructions, please talk to you doctor. Discharge Activity: May Not Drive - for 1 week or while taking narcotic pain medicine. May shower in (days): 1 Lifting Restrictions: 10 pounds Call your doctor if your incision/area has: Continuous Slow Oozing, Sudden Increased Bleeding, Increased Pain/ Swelling, Increased Redness, Foul Smelling Discharge Call your doctor if you observe: Fever of 101 or Higher Suture Line Care: Avoid Pulling/Pushing, Avoid Pinching/Bending Additional Dressing/Incision Instructions:: Change or remove dressing in 4 days. Leave steri-strips in place for 1 week. Allergies/Adverse Reactions: Allergies clindamycin [From Cleocin] Allergy (Verified 02/14/20 20:11) Other HYPOTENSION duracef Allergy (Severe, Uncoded 02/13/20 15:41) Vomiting Medications to take at Discharge Prazosin HCl 2 mg PO DAILY 11/08/17 Venlafaxine HCl [Venlafaxine HCl ER] 150 mg PO QHS 11/08/17 Tamsulosin HCl [Flomax] 0.8 mg PO DAILY 05/29/18 Venlafaxine HCl [Effexor Xr] 75 mg PO DAILY 05/29/18 Atorvastatin Calcium 40 mg PO DAILY 09/07/18 Ipratropium/Albuterol Respimat [Combivent Respimat Inhal [place]] 2 puff IH Q4H PRN PRN 09/07/18 Lamotrigine 200 mg PO BID 09/07/18 Acetaminophen/Codeine #3 [Tylenol #3 Tablet] 1 tab PO Q6H PRN PRN #12 tab 02/13/20 Omeprazole 40 mg PO DAILY 02/13/20 Cholecalciferol (Vitamin D3) [Vitamin D3] 5,000 unit PO DAILY 02/14/20 Lisdexamfetamine Dimesylate [Vyvanse] 70 mg PO DAILY 02/14/20 Propranolol HCl [Inderal (Beta [place])] 20 mg PO BID 02/14/20 levothyroxine 125 mcg tablet 125 mcg PO DAILY 02/14/20 sildenafil (pulm.hypertension) 20 mg tablet 20 mg PO DAILY 02/14/20 Primary Care Physician: Margy Patel MD [Primary Care Provider] - Test Results: Test results from this visit will be discussed in further detail at your follow- up appointment, if applicable. Please Follow Up With: Miguel Angel Dorna MD - [phone] When: Call to make an appointment to be seen in about 10 days.
--- NOTE | 2020-02-14 22:33 | PCM.OPRPT ---
Problem List (1) Incarcerated left inguinal hernia Status: Acute Report of Operation Date of Procedure: 02/14/20 Pre-Operative Diagnosis: Incarcerated left inguinal hernia Post-Operative Diagnosis: Incarcerated indirect left inguinal hernia with small bowel involvement Surgery/Procedure Performed:: Laparoscopic left inguinal herniorrhaphy with Bard 3D max large left mesh. Lot number [id number]. Reference #[id number]. Expiry date 09/15/2024. Secure strap lot number [id number], expiry date June 2021 Description of Surgical Findings:: Timeout and informed consent was obtained. 69-year-old gentleman was taken to the operating placed by the table underwent general endotracheal intubation esthesia. Ancef 2 g were given intravenously. The abdomen was sterilely prepped and draped. 0.5% Marcaine was used as a local anesthetic. Throughout the procedure total 25 cc was used. Skin sites were pre-anesthetized. A vertical infraumbilical incision was created holding sutures of 0 Vicryl placed varies needle inserted saline drop test performed the abdomen was insufflated with CO2 to a pressure of 10 mm mercury pressure, 10mm trocar inserted 10 laparoscope inserted observing trocar injuries 5 mm trochars were placed in the left and right lower quadrant a ilioinguinal nerve block was performed and laparoscopic control. Right groin appeared to be solid. There was evidence of a loop of bowel within an indirect left inguinal hernia. With gentle retraction that was completely reduced. The bowel was inspected it was slightly hemorrhagic but appeared to be completely viable. The mesentery also appeared to be in good condition. It had motility. There was some evidence of downstream diminutive caliber and upstream more distended caliber consistent with a partial obstruction. The peritoneum superior lateral to the internal ring was incised and carried medially. The peritoneum was then completely dissected free and inverted. The direct indirect and femoral area nicely inspected and identified. A large Bard left 3D mesh was selected was placed was to nicely cover the defect area. It nicely covered direct indirect and femoral areas. I secured it laterally superiorly and medially with secure strap. Very good positioning was achieved. The peritoneum was approximated to itself using hemo-lock clips and a couple additional secure straps. Complete obliteration to the mesh was achieved. I then did briefly attempt to reinspect the bowel however the area of concern had already moved away from the operative site. I could not easily with the trocar positions run the bowel and so as I had had a very good initial inspection I elected not to pursue that attempt. The gas was allowed to escape through the design filter. Trochars were removed. The fascia at the umbilicus approximated up to 0 Vicryl [id number] suture. Skin edges approximated opted for Monocryl subdermal stitches. Steri-Strips Telfa and OpSite dressings applied. Sponge and instrument and needle counts were reported the surgeon be correct. Specimens none. Drains none. Blood loss minimal. The patient was taken to the recovery area in satisfactory condition without apparent complication Miguel Angel Doran M.D., F.A.C.S. Type of Anesthesia:: General Anesthesiologist: Chrissy Murrell
[2020-02-14] MEDS: Lactated Ringers 1,000 ML 100 ML IV (23:05)
[2020-02-15] MEDS: Lactated Ringers 1,000 ML 70 ML IV ×2 (00:33→11:28)
[2020-02-15 00:50] VITALS: O2SAT 93
[2020-02-15] MEDS: Venlafaxine XR 150 MG Capsule PO (01:25)
[2020-02-15] MEDS: Propranolol 10 MG Tablet 20 MG PO ×2 (01:26→09:07)
[2020-02-15] MEDS: lamoTRIgine 100 MG Tablet 200 MG PO ×2 (01:26→09:08)
[2020-02-15 01:28] VITALS: BP 107/44; PULSE 86; RESP 18; TEMP 36.8; O2SAT 96; BMI 23.0
[2020-02-15 03:40] VITALS: BP 100/44; PULSE 78; RESP 16; TEMP 37; O2SAT 94; BMI 23.0
--- NOTE | 2020-02-15 06:17 | PN.SURG_ITS ---
Patient Problems: Active and Suspected Problems (Last Reviewed 02/14/20 @ 10:19 by Gavi Leung) Incarcerated left inguinal hernia (Acute) Left inguinal hernia (Acute) History of colonoscopy (Acute ~2012) Hx of LASIK (Acute) History of thyroidectomy, total (Acute) Hyperlipidemia (Acute) DJD (degenerative joint disease), lumbar (Acute) DJD (degenerative joint disease) of thoracic spine (Acute) DJD (degenerative joint disease) of cervical spine (Acute) History of implanted electronic device (Acute) History of thyroid cancer (Acute) Hemorrhoid (Acute) GERD (gastroesophageal reflux disease) (Acute) Anxiety (Acute) Subjective: Pt feeling well, so much better than yesterday Hasn't voided, no flatus, no nausea, no significant pain - Physical Exam Vitals/I&O's: Vital Signs Temp Pulse Resp BP Pulse Ox 98.6 F 78 16 100/44 L 94 02/15/20 03:40 02/15/20 03:40 02/15/20 03:40 02/15/20 03:40 02/15/20 03:40 Oxygen Delivery Method Room Air Weight: 151 lb Body Mass Index (BMI) 22.9 Finger Stick Blood Glucose 101 Intake and Output for Last 24 Hours 02/13/20 02/14/20 02/15/20 23:59 23:59 23:59 Intake Total 45 / 45 150 / 150 Balance 45 / 45 150 / 150 General: Alert, Oriented x3, Cooperative, No apparent distress Lungs: Clear to auscultation Abdomen: Soft, Hypoactive Bowel Sounds - mild edema left groin, nontender Current Medications Acetaminophen (Tylenol) 650 mg PO Q6H PRN PRN PRN Reason: Pain Score 1-10/10 Albuterol/Ipratropium (Duoneb) 3 ml INHALATION Q4H PRN PRN Atorvastatin Calcium (Lipitor) 40 mg PO QHS [facility] Doxazosin Mesylate (Cardura) 1.5 mg PO DAILY [facility] Lactated Ringer's () 1,000 mls @ 70 mls/hr IV .[id number] [facility] Last Admin: 02/15/20 00:33 Dose: 70 mls/hr Documented by: Lamotrigine (Lamictal) 200 mg PO BID [facility] Last Admin: 02/15/20 01:26 Dose: 200 mg Documented by: Levothyroxine Sodium (Synthroid) 125 mcg PO DAILY@0600 [facility] Morphine Sulfate () 2 - 4 mg IV Q1H PRN PRN PRN Reason: Pain Score 1-10/10 Non-Formulary Medication (Lisdexamfetamine Dimesylate) 70 mg PO DAILY [facility] Non-Formulary Medication (Sildenafil Citrate [Revatio]) 20 mg PO DAILY [facility] Ondansetron HCl (Zofran) 4 mg IV Q8H PRN PRN PRN Reason: NAUSEA Oxycodone HCl (Oxyir) 5 - 10 mg PO Q4H PRN PRN PRN Reason: Pain Score 6-10/10 Pantoprazole Sodium (Protonix) 40 mg PO DAILY [facility] Propranolol HCl (Inderal) 20 mg PO BID [facility] Last Admin: 02/15/20 01:26 Dose: 20 mg Documented by: Tamsulosin HCl (Flomax) 0.8 mg PO DAILY [facility] Venlafaxine HCl (Effexor Xr) 75 mg PO DAILY [facility] Venlafaxine HCl (Effexor Xr) 150 mg PO QHS [facility] Last Admin: 02/15/20 01:25 Dose: 150 mg Documented by: Medical Necessity - Tobacco Use Smoking Status: Never smoker Assessment/Plan All Active Problems (Last Reviewed 02/14/20 @ 10:19 by Gavi Leung) Incarcerated left inguinal hernia (Acute) Left inguinal hernia (Acute) Abnormal abdominal CT scan (Acute) Inguinal hernia of left side without obstruction or gangrene (Acute) Left kidney mass (Acute) Gallbladder polyp (Acute) History of colonoscopy (Acute ~2012) Hx of LASIK (Acute) History of thyroidectomy, total (Acute) Hyperlipidemia (Acute) DJD (degenerative joint disease), lumbar (Acute) DJD (degenerative joint disease) of thoracic spine (Acute) DJD (degenerative joint disease) of cervical spine (Acute) History of implanted electronic device (Acute) History of thyroid cancer (Acute) Hemorrhoid (Acute) GERD (gastroesophageal reflux disease) (Acute) Anxiety (Acute) Need to mobilize Check bladder scan, pt routinely on flomax Plan discharge today
[2020-02-15] MEDS: Levothyroxine 125 MCG Tablet PO (06:27)
[2020-02-15 07:48] VITALS: BP 100/54; PULSE 71; RESP 16; TEMP 36.7; O2SAT 98
[2020-02-15 07:56] VITALS: O2SAT 99
[2020-02-15] MEDS: Pantoprazole Sodium 40 MG Tablet PO (09:07)
[2020-02-15] MEDS: Tamsulosin HCl 0.4 MG Capsule 0.8 MG PO (09:07)
[2020-02-15] MEDS: Doxazosin 1 MG Tablet 1.5 MG PO (09:07)
[2020-02-15] MEDS: Venlafaxine XR 75 MG Capsule PO (09:08)
[2020-02-15 13:32] VITALS: BP 123/63; PULSE 84; RESP 16; TEMP 36.6; O2SAT 99
== END 2020-02-15 14:20 | disposition home or self-care (01) ==
LOC: ED 20:12 → SDC 20:14 → AC 20:14 → SDC 20:44 → MS3 20:55
PROVIDERS: Admitting Provider Surgery; Emergency Provider Emergency Medicine; PCP Internal Medicine; Referring Provider Surgery; Visit Provider Surgery
PROC: (CPT 49650; principal; 2020-02-14 21:15)
DX: K40.30 Unilateral inguinal hernia, with obstruction, without gangrene, not specified as recurrent (principal); Z79.899 Other long term (current) drug therapy; E78.5 Hyperlipidemia, unspecified; E03.9 Hypothyroidism, unspecified; G47.33 Obstructive sleep apnea (adult) (pediatric); K21.9 Gastro-esophageal reflux disease without esophagitis; F41.9 Anxiety disorder, unspecified; K82.4 Cholesterolosis of gallbladder; N28.89 Other specified disorders of kidney and ureter
CPT/HCPCS: 00840; 49650; 94762; 96360; 99218; 99284; J7030; J7120; A4216; C1781; G0378; J2405

== ENCOUNTER → 2023-01-26 | Outpatient (CLI) | payer MEDICARE, OTHER, SELFPAY ==
[2023-01-26 17:08] LABS: Absolute Lymphocyte Count 1.55 X10^3/uL (0.83-4.51); Absolute Neutrophil Count 3.7 X10^3/uL (2.0-7.7); Basophil# 0.05 X10^3/uL; Basophil% 0.8 % (0-1); Eosinophil# 0.14 X10^3/uL; Eosinophils% 2.3 % (0-5); Hematocrit 25.8 % (40-54); Hemoglobin 8.5 g/dL (13.0-16.5); Lymphocyte # 1.55 X10^3/ul (0.83-4.51); Mean Corp Hgb Conc 32.9 g/dL (32-36); Mean Corpuscular Hgb 28.7 pg (27.0-32.0); Mean Corpuscular Volume 87.2 fL (80-94); Mean Platelet Vol. 8.2 fl (6.2-12.0); Monocyte# 0.49 X10^3/uL; Monocyte% 8.2 % (0-10); NRBC Flagged by Analyzer 0 % (0-5); Neutrophil # 3.71 X10^3/uL (2.7-7.7); Neutrophil % 62.4 % (47-70); Platelet Count 501 K/mm3 (150-450); RBC Distribution Width CV 18.6 % (11.6-14.6); RBC Distribution Width SD 59.7 fl (35.1-43.9); Red Blood Count 2.96 M/mm3 (4.6-6.2)
== END | disposition home or self-care (01) ==
LOC: LABSPEC 16:47
PROVIDERS: PCP Internal Medicine; Referring Provider Internal Medicine; Visit Provider Internal Medicine
DX: D64.9 Anemia, unspecified (principal)
CPT/HCPCS: 85025